=== PATIENT | female | born 1975 | race Caucasian/White ===

== ENCOUNTER 2021-10-22 07:18 | Outpatient (REF) | payer OTHER, SELFPAY ==
--- NOTE | ~2021-10-22 | XR_ITS ---
EXAMINATION: XR BILATERAL AP XR RIGHT KNEE-LATERAL AND PATELLOFEMORAL VIEWS CLINICAL INFORMATION: Right knee pain. COMPARISON: None TECHNIQUE: Upright frontal views of both knees and lateral and patellofemoral views of the right knee were obtained. FINDINGS: Frontal view of both knees: The bony alignments are intact. The cortices are intact. The articular margins, joint space appear bilaterally symmetric. No evidence of any subchondral sclerosis and osteophyte formations. Lateral and patellofemoral view of the right knee: The bony alignments are intact. The cortices are intact. Articular margins, joint space appear unremarkable. No evidence of any suprapatellar effusion. XR/XR knee standing BI IMPRESSION: 1. Unremarkable frontal view only of both knees. 2. Unremarkable lateral and patellofemoral views of the right knee.
--- NOTE | ~2021-10-22 | XR_ITS ---
EXAMINATION: XR BILATERAL AP XR RIGHT KNEE-LATERAL AND PATELLOFEMORAL VIEWS CLINICAL INFORMATION: Right knee pain. COMPARISON: None TECHNIQUE: Upright frontal views of both knees and lateral and patellofemoral views of the right knee were obtained. FINDINGS: Frontal view of both knees: The bony alignments are intact. The cortices are intact. The articular margins, joint space appear bilaterally symmetric. No evidence of any subchondral sclerosis and osteophyte formations. Lateral and patellofemoral view of the right knee: The bony alignments are intact. The cortices are intact. Articular margins, joint space appear unremarkable. No evidence of any suprapatellar effusion. XR/XR knee RT 2V IMPRESSION: 1. Unremarkable frontal view only of both knees. 2. Unremarkable lateral and patellofemoral views of the right knee.
== END 2021-10-22 07:19 | disposition home or self-care (01) ==
LOC: HO.HOSX 07:18
PROVIDERS: Visit Provider Physician Assistant
DX: M23.91 Unspecified internal derangement of right knee (principal)
CPT/HCPCS: 20610; 73560; 73565; 99202; J1040

== ENCOUNTER 2021-11-12 19:25 | Outpatient (REF) | payer OTHER, MEDICAID, SELFPAY ==
--- NOTE | ~2021-11-12 | MR_ITS ---
EXAMINATION: MR KNEE WITHOUT CONTRAST, RIGHT CLINICAL INFORMATION: Internal derangement of the right knee. COMPARISON: X-ray of the right knee 10/22/2021. TECHNIQUE: MRI of the knee without contrast was performed using routine sequences on a high-field scanner. FINDINGS: MENISCI: Medial Meniscus: Intact. Lateral Meniscus: There is a subtle focal area of increased signal along the tibial articular surface at the junction of the posterior horn and body consistent with meniscal tear. Question additional tearing at the junction of the transverse meniscal ligament with the anterior horn versus normal variation at the attachment. LIGAMENTS: Cruciate: Intact. Collateral: Intact. EXTENSOR MECHANISM: Intact. ARTICULAR CARTILAGE/BONE: Patellofemoral Compartment: Normal. Medial Compartment: Normal. Lateral Compartment: Normal. JOINT FLUID AND BURSAE: Trace joint effusion and Lorenz's cyst. ADDITIONAL FINDINGS: Mild scattered edema in the subcutaneous soft tissues. MR/MR knee RT wo con IMPRESSION: Tear of the lateral meniscus .
== END 2021-11-12 19:26 | disposition home or self-care (01) ==
LOC: HO.MRI 19:25
PROVIDERS: Visit Provider Physician Assistant
DX: M23.91 Unspecified internal derangement of right knee (principal)
CPT/HCPCS: 73721

== ENCOUNTER → 2021-11-24 08:38 | Outpatient (BNVA) | payer OTHER, MEDICAID, SELFPAY | PROVIDERS: PCP Internal Medicine; Visit Provider Orthopaedic Surgery | DX: S83.206D Unspecified tear of unspecified meniscus, current injury, right knee, subsequent encounter (principal) | CPT/HCPCS: 99212 ==

== ENCOUNTER 2021-12-17 06:42 | Day surgery (SDC) | payer OTHER, SELFPAY ==
[2021-12-11 10:32] VITALS: BMI 39.6
--- NOTE | 2021-12-16 09:58 | P.CONAN_ITS ---
Documented by User: Bernadette Estrada NP 12/16/21 09:59 HPI - Anesthesia Eval Consult details Narrative: 46yo F for Right Knee Arthroscopy PMFSH Active Problems Active Problems: All Active Problems (Updated 12/11/21 @ 10:29 by Crystal Henry RN) Internal derangement of right knee (Acute) Right knee meniscal tear (Acute) Past Medical History Medical History (Updated 12/11/21 @ 10:29 by Crystal Henry RN) Anxiety Asthma Surgical History Surgical History (Updated 12/11/21 @ 10:29 by Crystal Henry RN) Hx of section Hx of hysterectomy Social History Social History (Updated 10/22/21 @ 10:13 by JONATHON Roldan) Are you a primary out of school hours care worker to a significant other at home: No Do you presently have visiting nurse or other home services: No Patient Tobacco Use Status: Former Tobacco user Current occupational status: unemployed Meds Allergies Allergy/AdvReac Type Severity Reaction Status Date / Time No Known Allergies Allergy Verified 12/11/21 09:08 Home Medications Medication Instructions Recorded Confirmed Last Taken Type cholecalciferol (vitamin D3) 1,250 1,250 mcg PO QWEEK 10/22/21 12/11/21 Unknown History mcg (50,000 unit) capsule hydroxyzine HCl 10 mg tablet 10 mg PO BID 10/22/21 12/11/21 Unknown History paroxetine HCl 20 mg tablet 20 mg PO DAILY 10/22/21 12/11/21 12/17/21 History albuterol sulfate 90 mcg/actuation 2 puff inhalation [id number] PRN Wheezing 12/11/21 12/11/21 Unknown History aerosol inhaler (ProAir HFA) cholecalciferol (vitamin D3) 1,250 1 cap PO QWEEK 12/11/21 12/11/21 Unknown History mcg (50,000 unit) capsule diclofenac sodium 75 mg 1 tab PO BID 12/11/21 12/11/21 Unknown History tablet,delayed release Exam Exam Date and Time: December 16, 2021 0958 Height,Weight and Vital Signs: Height 5 ft 2 in Weight 98.43 kg Assessment and Plan Assessment Anesthesia Assessment: Chart Reviewed Documented by User: Boris Mir MD 12/17/21 18:52 [facility] Past Medical History Medical History (Updated 12/11/21 @ 10:29 by Crystal Henry RN) Anxiety Asthma Family History Family history of problems with anesthesia: No Surgical History Surgical History (Updated 12/11/21 @ 10:29 by Crystal Henry RN) Hx of section Hx of hysterectomy History of Problems with Anesthesia: No Social History Social History (Updated 10/22/21 @ 10:13 by JONATHON Roldan) Are you a primary out of school hours care worker to a significant other at home: No Do you presently have visiting nurse or other home services: No Patient Tobacco Use Status: Former Tobacco user Current occupational status: unemployed Meds Allergies Allergy/AdvReac Type Severity Reaction Status Date / Time No Known Allergies Allergy Verified 12/11/21 09:08 Home Medications Medication Instructions Recorded Confirmed Last Taken Type cholecalciferol (vitamin D3) 1,250 1,250 mcg PO QWEEK 10/22/21 12/11/21 Unknown History mcg (50,000 unit) capsule hydroxyzine HCl 10 mg tablet 10 mg PO BID 10/22/21 12/11/21 Unknown History paroxetine HCl 20 mg tablet 20 mg PO DAILY 10/22/21 12/11/21 12/17/21 History albuterol sulfate 90 mcg/actuation 2 puff inhalation [id number] PRN Wheezing 12/11/21 12/11/21 Unknown History aerosol inhaler (ProAir HFA) cholecalciferol (vitamin D3) 1,250 1 cap PO QWEEK 12/11/21 12/11/21 Unknown History mcg (50,000 unit) capsule diclofenac sodium 75 mg 1 tab PO BID 12/11/21 12/11/21 Unknown History tablet,delayed release Exam Airway Mallampati Class: III TM Dist: >3cm Neck ROM: Full Loose/Missing/Broken Teeth: Yes (Missing lower , upper implants ) Heart: S1, S2 Lungs: b/l breath sounds Assessment and Plan Assessment Anesthesia Assessment: Anesthesia Plan Discussed Final Anesthetic Review Family History of Problems with Anesthesia: No History of Problems with Anesthesia: No NPO: Yes ASA Class: II Final Preanesthetic Review: Meds/Allgs Chart Reviewed and Anes Risks/Benef Reviewed Patient Risk: Intermediate Procedure Risk: Intermediate Anesthetic Plan Anesthetic Plan: GA Disposition: Standard PACU
[2021-12-17] VITALS (9 sets, daily range): BP systolic 111–155; BP diastolic 66–96; PULSE 67–91; RESP 14–17; TEMP 36.1–36.6; O2SAT 97
[2021-12-17] MEDS: Lactated Ringers 1,000 ML 100 ML IVCONT (07:54)
--- NOTE | 2021-12-17 10:53 | PM.OP ---
Brief Operative Note Date of Service: 12/17/21 Pre-op diagnosis: right lateral meniscus tear Post-op diagnosis: other (1) same 2) medial plica) Procedure: Lateral partial meniscectomy and plica resection right knee Surgeon: Luis Ruiz MD Anesthesia: GETA Was an Inspection Supervisor used for this Procedure?: No Estimated blood loss (mL): 5 IV fluids (mL): 500 Pathology: none sent Condition: stable Disposition: PACU
[2021-12-17] MEDS: oxyCODONE HCl Immed Release 5 MG TABLET PO (11:47)
--- NOTE | 2021-12-23 12:20 | W.PM.OPN ---
Operative Note Operative Note Date of Service: 12/17/21 Narrative: Date of Service: 12/17/21 Pre-op diagnosis: right lateral meniscus tear Post-op diagnosis: other (1) same 2) medial plica) Procedure: Lateral partial meniscectomy and plica resection right knee Surgeon: Luis Ruiz MD Anesthesia: GETA Was an Snack Stewardess used for this Procedure?: No Estimated blood loss (mL): 5 IV fluids (mL): 500 Pathology: none sent Condition: stable Disposition: PACU Procedure in detail: Patient was brought to the operating room placed supine on the arthroscopic table and prepped and draped in standard sterile fashion. A time-out was called to identify proper site proper procedure proper surgeon and IV antibiotics per weight were administered. I began by exsanguinating the limb and insufflating tourniquet to 300 mm Hg. Then made a standard anterolateral stab incision. knee was insufflated with water and 30 degree arthroscope was placed. There was grade 1 fibrillations of the patella but overall suprapatellar pouch and the gutters were clean. I descended into the medial compartment where I made my medial portal under direct visualization. There was a normal medial compartment. The root was intact. The ACL was intact and I entered the lateral compartment where there was a degenerative radial tear. There was G1/G2 changes of the lateral compartment. I used a combination of biter shaver and cautery to remove unstable portions of the meniscus. Approximately 20% of the meniscal volume was removed. Once I was satisfied with this there was a medial plica which was removed as well. I then removed all instrumentation and closed the portals with skin glue. 25 mL of 2% Marcaine with epinephrine was injected into the joint and the surrounding soft tissues. Patient was then placed in sterile dressing extubated brought recovery room stable condition. There were no known complications.
== END 2021-12-17 13:19 | disposition home or self-care (01) ==
PROVIDERS: Visit Provider Orthopaedic Surgery
PROC: (CPT 29870; principal; 2021-12-17 09:10)
DX: S83.281A Other tear of lateral meniscus, current injury, right knee, initial encounter (principal); M67.51 Plica syndrome, right knee; W19.XXXA Unspecified fall, initial encounter; Y93.9 Activity, unspecified; Y92.9 Unspecified place or not applicable; Y99.8 Other external cause status
CPT/HCPCS: 29881; J0171; J0690; J1100; J1170; J1885; J2250; J2405; J3010

== ENCOUNTER 2022-01-08 10:00 | Outpatient (RCR) | payer OTHER, SELFPAY ==
--- NOTE | 2021-12-23 12:08 | MHC.PT.EP ---
[facility] [place] Office [place] Office [place] Office [address] Monica Carroll [address] [phone] F: [phone] F: [phone] F: [phone] F: [phone] Physical Therapy Plan of Care Date of Evaluation: Date of Surgery: 12/17/21 Diagnosis: Unspecified internal derangement of right knee unspecified tear of unspecified meniscus, current injury, right knee R knee 12/17/21 Assessment: Pt is a pleasant 46yo F who presents to PT s/p lateral partial meniscectomy and plica resection right knee with Dr. Ruiz on 12/17/21. Pt presents with expected impairments of pain, decreased R knee ROM, decreased R LE strength, decreased balance, and impaired gait. She is limited functionally by prolonged standing, walking, stair navigation, and sleeping. She is an excellent candidate for skilled PT in order to address current impairments to facilitate return to PLOF. She will be seen 2x/week for 4 weeks and will be reassessed at that time. Frequency and Duration: The patient will be seen 2x/week for 4 weeks Short Term Goals: Pt will be I with HEP to promote self management of symptoms Pt will improve R knee extension by at least 5 degrees Manager Fire Goals: Pt will demonstrate full, ROM and strength throughout R knee per protocol Pt will demonstrate ability to ascend/descend 1 flight of stairs with reciprocal pattern Pt will demonstrate improvements in function as evidenced by statistically significant improvement in LEFI outcome measure Treatment Plan: Modalities to reduce pain, spasms and effusion. Manual therapy to restore motion and function. Therapeutic exercise to improve strength and flexibility. Neuromuscular re-education for posture and balance. Therapeutic activities to return to functional activities of daily living. Electronically signed by: Criss Kaplan, PT, DPT Please sign and return to therapist. Thank you for your referral.
--- NOTE | 2022-01-16 16:02 | MHC.PT.DC ---
[facility] [place] Office [place] Office [place] Office [address] Monica Carroll [address] [facility] [phone] F: [phone] F: [phone] F: [phone] F: [phone] Physical Therapy Discharge Report Diagnosis: Unspecified internal derangement of right knee unspecified tear of unspecified meniscus, current injury, right knee R knee 12/17/21 Date of Surgery: 12/17/21 Date of Evaluation: 12/23/21 Date of Discharge: 01/16/22 Treatments to Date: 4 Cancellations to Date: 1 No Shows to Date: 3 Discharge Status: Visit Non-compliance Discharge Summary: Pt was seen for PT from 12/23/21-01/08/22. Her last attended appointment was 01/08/22. She has had 3 no-show appointments since SOC. Pt is being D/C from skilled PT per [facility] attendance policy and visit non-compliance. Pt current level of function unknown at this time. Electronically signed by: Criss Kaplan, PT, DPT Please sign and return to therapist. Thank you for your referral.
== END 2022-01-16 16:03 | disposition home or self-care (01) ==
LOC: HO.PT 10:00
PROVIDERS: Visit Provider Physician Assistant
DX: M23.91 Unspecified internal derangement of right knee (principal); S83.206D Unspecified tear of unspecified meniscus, current injury, right knee, subsequent encounter
CPT/HCPCS: 97110; 97140; 97161; 97530

== ENCOUNTER 2023-01-12 09:38 | Emergency (ER) | payer MEDICAID, SELFPAY ==
--- NOTE | ~2023-01-12 | CT_ITS ---
EXAMINATION: CT ABDOMEN AND PELVIS WITH CONTRAST CLINICAL INFORMATION: Left ventral hernia, pain. COMPARISON: None available. TECHNIQUE: Multidetector volumetric images were obtained from the superior aspect of the liver through the pubic symphysis following administration 85 mL of Omnipaque 350 intravenous contrast. Sagittal and coronal reformatted images were obtained on the technologist's workstation. Oral contrast: No This CT examination was performed using dose optimization techniques as appropriate, variously including the following: *Automated exposure control *Adjustment of mA and/or kV according to patient size (this includes techniques or standardized protocols for targeted exams where dose is matched to indication/reason for exam; i.e. extremities or head) *Use of iterative reconstruction technique DLP: 795 mGy-cm FINDINGS: LUNG BASES: Normal. No pulmonary consolidation or pleural effusion. LIVER: The liver has normal size, shape, and attenuation. No evidence of liver mass. GALLBLADDER AND BILIARY TREE: Gallbladder is without radiopaque stones, wall thickening or pericholecystic fluid. No dilated bile ducts. PANCREAS: Normal. No edema, pancreatic ductal dilatation or mass. SPLEEN: Normal. ADRENAL GLANDS: Normal. KIDNEYS AND URETERS: The kidneys have normal size and cortical thickness. No perinephric edema or fluid collection. No urolithiasis or hydroureteronephrosis. BLADDER: Normal. No calculi or wall thickening. BOWEL AND PERITONEUM: Stomach is unremarkable. No dilated loops of bowel. The appendix is normal. No overt bowel wall thickening or mesenteric fat stranding. No free fluid or pneumoperitoneum. ABDOMINAL WALL: There is negligible protrusion of fat into the umbilicus. There appears to be chronic postoperative scarring of the lower abdominal wall. The contrast enhancing tissue thickening that measures 1.2 cm AP in the lower abdominal wall could represent nodular-appearing fibrosis. There are no comparison imaging exams that allow documentation of the stability of this focus. If there is any clinical history of endometriosis, then postoperative endometrial deposit in the abdominal wall may be included in the differential. A small 0.7 cm nodular focus is seen within the fat just deep to the midline abdominal wall (sagittal reformatted image 60, series 7). VASCULATURE: Mild atherosclerosis of the abdominal aorta and iliac arteries without aneurysm. Inferior vena cava is normal. LYMPH NODES: No pathologic sized lymph nodes in the abdomen or pelvis. No inguinal lymphadenopathy. PELVIC VISCERA: Status post hysterectomy. The largest follicle of the left ovary is 1.2 cm. There appears to be a 1.1 cm wide somewhat tubular shaped simple cystic-appearing focus within the right ovary (image 67, series 2). No pelvic free fluid. MUSCULOSKELETAL: Unremarkable. CT/CT abdomen pelvis w IV con IMPRESSION: * No acute imaging abnormalities within the abdominal wall. No ventral abdominal wall hernia. * Postoperative scarring in the lower abdominal wall. Also, findings include a 1.2 cm AP dimension nodular-appearing focus of contrast enhancement in the lower abdominal wall. Although this could represent chronic focal fibrosis, there are no comparison imaging exams. Correlation with site of patient's pain is needed. If this corresponds to region of patient's pain and if there is any history of endometriosis, then the possibility of an endometrial deposit in the abdominal wall would be considered. A small 0.7 cm nodular focus located just deep to the abdominal wall is of questionable significance in this patient who has previously undergone hysterectomy.
[2023-01-12 10:23] VITALS: BP 137/87; PULSE 69; RESP 18; TEMP 36.1; O2SAT 99; BMI 42.8
--- NOTE | 2023-01-12 11:03 | ED_ITS ---
HPI - General Adult General Chief complaint: General Medical Stated complaint: Hernia Pain Left Side Time Seen by Provider: 01/12/23 10:37 Source: patient and RN notes reviewed Mode of arrival: ambulatory Limitations: no limitations History of Present Illness HPI narrative: This is a 47-year-old female presenting to the emergency department with complaints of left groin pain x 4 days. Patient reports she has a hernia in her left lower abdomen which she has had since her Caesarean section that was performed 7 years ago. Patient reports that she has had no recent trauma or injury to her left lower abdomen. Reports that when she coughs or sneezes she feels as though area increases in size. Area is tender to palpation. Denies any fevers, chills, abdominal pain, nausea, vomiting, diarrhea, urinary symptom s. She denies history of endometriosis. She had a hysterectomy. No other complaints or concerns at this time. MD complaint: Left lower abdominal pain Onset (ago): day(s) Radiation: non-radiation Quality: aching Pain Consistency: constant Relieving factors: none Exacerbating factors: none Associated symptoms: denies other symptoms Treatments prior to arrival: none Related Data Home Medications Medication Instructions Recorded Confirmed cholecalciferol (vitamin D3) 1,250 1,250 mcg PO QWEEK 10/22/21 12/11/21 mcg (50,000 unit) capsule hydroxyzine HCl 10 mg tablet 10 mg PO BID 10/22/21 12/11/21 paroxetine HCl 20 mg tablet 20 mg PO DAILY 10/22/21 12/11/21 albuterol sulfate 90 mcg/actuation 2 puff inhalation 6XD PRN Wheezing 12/11/21 12/11/21 aerosol inhaler (ProAir HFA) cholecalciferol (vitamin D3) 1,250 1 cap PO QWEEK 12/11/21 12/11/21 mcg (50,000 unit) capsule diclofenac sodium 75 mg 1 tab PO BID 12/11/21 12/11/21 tablet,delayed release Previous Rx's Medication Instructions Recorded hydrocodone 5 mg-acetaminophen 325 1 tab PO Q8H PRN pain 7 days #21 12/17/21 mg tablet tabs acetaminophen 325 mg capsule 650 mg PO Q6H PRN pain #14 caps 01/12/23 (Tylenol) ibuprofen 600 mg tablet 600 mg PO Q6H PRN pain #30 tabs 01/12/23 Allergies Allergy/AdvReac Type Severity Reaction Status Date / Time No Known Allergies Allergy Verified 12/29/21 10:42 Review of Systems Review of Systems: Yes all other systems are reviewed and are negative Constitutional: Constitutional: Reports as per [facility] Past Medical History Medical History Anxiety Asthma Surgical History Hx of section Hx of hysterectomy Social History Social History Are you a primary career placement services counselor to a significant other at home: No Do you presently have visiting nurse or other home services: No Patient Tobacco Use Status: Former Tobacco user Advance Directives: No Current occupational status: unemployed Physical Exam ED Vital Signs: Vital Signs - 24 hr 01/12/23 10:23 Temperature 97 F Pulse Rate 69 Respiratory Rate 18 Blood Pressure 137/87 Pulse Oximetry 99 Oxygen Delivery Method Room Air BMI result Body Mass Index 42.8 Const General: cooperative, comfortable and no acute distress Orientation/consciousness: patient oriented x3 Limitations: no limitations HENMT Head: Yes normal to inspection, Yes normocephalic and Yes atraumatic Ears: hearing grossly normal bilaterally General nose exam: Normal external nose present Face and sinus: Yes normal facial exam Mouth: Normal oral and palatal mucosa present, oropharynx normal and moist mucous membranes Throat: Yes posterior oropharynx normal Eyes General: appearance normal, both eyes and all related structures Eyelids: Yes eyelids normal Conjunctivae: conjunctivae normal Sclerae: sclerae normal Pupils: Equal, round and reactive pupils present EOM: EOMs intact bilaterally Neck Neck: Yes normal visual inspection, Yes full ROM and Yes no lymphadenopathy Lymphatic: no lymphadenopathy noted Chest Chest palpation & inspection: normal inspection of the chest Resp Effort & Inspection: normal respiratory effort and able to speak in complete sentences Auscultation: clear to auscultation bilaterally, no crackles, no rales, no rhonchi and no wheezes Cardio Rate: regular rate Rhythm: regular rhythm Heart sounds: S1 normal heart sound present and S2 normal heart sound present GI Other: Abdomen is soft nontender, nondistended. Patient has obvious Caesarean section scar, with tenderness to palpation in the left lower quadrant, with palpable scar tissue noted. No obvious ventral hernia or inguinal hernia noted. No overlying skin changes, erythema, or warmth. Inspection: Yes normal to inspection Skin General skin exam: no rashes or lesions noted Trauma: no lacerations or abrasions Wounds: no wounds Neuro General: patient oriented x3 and moves all extremities Cranial nerves: Yes Equal, round and reactive pupils present Extrem General: Yes normal to inspection Right upper extremity: normal to inspection Left upper extremity: normal to inspection Right lower extremity: normal to inspection Left lower extremity: normal to inspection Course Reevaluation(s) Reevaluation #1: Patient has no leukocytosis, H and H stable, chemistry within normal limits, urine revealing high specific gravity otherwise unremarkable. CT abdomen and pelvis revealing no abnormalities within the abdominal wall, no ventral abdomin al wall hernia palpated. There is postoperative scarring in the lower abdominal wall as well as a 0.2 cm AP dimension nodular appearing focus of contrast enhancement in the lower abdominal wall which could represent fibrosis. Patient has no history of endometriosis to her knowledge. She does not have an OBGYN she can follow-up with. Given patient is able to tolerate p.o. and has normal labs normal UA, and symptoms have improved after receiving IV fluids, Tylenol and Toradol, will treat conservatively. Given return precautions if any new or worsening symptoms occur. Patient understands agrees with plan. Given referral to OBGYN. Medications Administered Discontinued Medications Generic Name Dose Route Start Last Admin Trade Name Troyq PRN Reason Stop Dose Admin Acetaminophen 975 mg 01/12/23 11:27 01/12/23 11:31 Acetaminophen 325 Mg Tablet PO 01/12/23 11:28 975 mg ONCE ONE Administration Sodium Chloride 1,000 mls @ 999 mls/hr 01/12/23 12:38 01/12/23 13:54 Ns IV 01/12/23 13:38 Infused .Q1H1M ONE Infusion Iohexol 85 ml 01/12/23 12:14 01/12/23 12:15 Iohexol 350 Mg/Ml 100 Ml Infus..Btl IV 01/12/23 12:15 85 ml ONCE ONE Administration Ketorolac Tromethamine 30 mg 01/12/23 12:38 01/12/23 12:43 Ketorolac Tromethamine 30 Mg/Ml Vial IVPUSH 01/12/23 12:39 30 mg ONCE ONE Administration Medical Decision Making Medical Decision Making MDM Narrative: 47-year-old female presenting to the emergency department for evaluation of left lower quadrant pain x4 days. Patient reports that she believes that she has a hernia in her left lower quadrant which has been increasing in size and pain. On arrival, vital signs within normal limits, patient is afebrile. Patient has tenderness to palpation in the left lower quadrant with palpable scar tissue noted to her abdominal quadrant. No obvious hernia palpated. No overlying skin changes. Given symptoms, will obtain basic labs, UA, and CT abdomen with contrast to rule out strangulated hernia versus intra-abdominal process. Patient has no nausea or vomiting. Has been urinating and having bowel movements without difficulty. Obstruction is less likely. Differential Diagnosis Differential Diagnoses: The differential diagnosis associated with the presentation includes Hernia, strangulated hernia, diverticulitis, diverticulosis, endometriosis, fibroids Admission/Observation Consideration of admission/observation: Escalation of care including admission/observation considered Patient would have been admitted to the hospital had her work up had any finding s where hospital admission was appropriate and her clinical presentation warranted hospital admission. Lab Data [facility] Lab Attestation statement: I reviewed the patient's lab results. See above 01/12/23 11:26 01/12/23 11:26 Labs: Lab Results 01/12/23 01/12/23 01/12/23 Range/Units 11:26 11:26 11:26 WBC 8.3 (4.8-10.8) X10*3/uL RBC 5.56 H (4.20-5.50) X10*6/uL Hgb 13.7 (12.0-16.0) g/dl Hct 44.0 (37.0-47.0) % MCV 79.1 L (80.0-98.0) fL MCH 24.6 L (27.0-33.0) pg MCHC 31.1 (31.0-35.0) g/dl RDW 14.1 (11.0-16.0) % Plt Count 422 H (160-400) X10*3/uL MPV 9.3 L (9.4-12.3) fL Immature Gran % (Auto) 0.5 H (0.0-0.4) % Neut % (Auto) 68.5 (45-73) % Lymph % (Auto) 22.1 (20-40) % Mason % (Auto) 6.6 (2-11) % Eos % (Auto) 1.8 (0-4) % Baso % (Auto) 0.5 (0-2) % Lymph # (Auto) 1.8 (1.2-4.9) X10*3/uL Mason # (Auto) 0.6 (0.1-1.2) X10*3/uL Eos # (Auto) 0.2 (0.0-0.4) X10*3/uL Baso # (Auto) 0.0 (0.0-0.2) X10*3/uL Abs Immat Gran (auto) 0.04 H (0.00-0.03) X10*3/uL Absolute Neuts (auto) 5.7 (2.0-8.3) x10*3/uL Absolute Nucleated RBC 0.000 (0.0-0.012) X10*3/uL Nucleated RBC % (auto) 0.0 (0.0-0.2) /100WBC Sodium 138 (135-145) mmol/L Potassium 3.7 (3.3-5.1) mmol/L Chloride 106 (96-108) mmol/L Carbon Dioxide 28 (22-29) mmol/L Anion Gap 8 L (12-20) BUN 10 (9-16) mg/dL Creatinine 0.92 (0.5-1.4) mg/dL Estim Creat Clear Calc 85.1 Estimated GFR > 60 Random Glucose 111 (60-115) mg/dL Lactic Acid 1.0 (0.5-2.0) mmol/L Calcium 8.9 (8.4-10.2) mg/dL Total Bilirubin 0.3 (0.0-1.0) mg/dL Direct Bilirubin 0.1 (0.0-0.5) mg/dL AST 13 (5-31) U/L ALT 18 (0-31) U/L Alkaline Phosphatase 87 (39-117) U/L Total Protein 7.3 (6.5-8.0) g/dL Albumin 3.8 (3.5-5.0) g/dL Urine Color Urine Appearance Urine pH (5.0-9.0) Ur Specific Bowie (1.005-1.025) Urine Protein (Neg-Trace) mg/dL Urine Glucose (UA) (Negative) mg/dL Urine Ketones (Negative) mg/dL Urine Blood (Negative) Urine Nitrite (Negative) Ur Leukocyte Esterase (Negative) 01/12/23 Range/Units 11:55 WBC (4.8-10.8) X10*3/uL RBC (4.20-5.50) X10*6/uL Hgb (12.0-16.0) g/dl Hct (37.0-47.0) % MCV (80.0-98.0) fL MCH (27.0-33.0) pg MCHC (31.0-35.0) g/dl RDW (11.0-16.0) % Plt Count (160-400) X10*3/uL MPV (9.4-12.3) fL Immature Gran % (Auto) (0.0-0.4) % Neut % (Auto) (45-73) % Lymph % (Auto) (20-40) % Mason % (Auto) (2-11) % Eos % (Auto) (0-4) % Baso % (Auto) (0-2) % Lymph # (Auto) (1.2-4.9) X10*3/uL Mason # (Auto) (0.1-1.2) X10*3/uL Eos # (Auto) (0.0-0.4) X10*3/uL Baso # (Auto) (0.0-0.2) X10*3/uL Abs Immat Gran (auto) (0.00-0.03) X10*3/uL Absolute Neuts (auto) (2.0-8.3) x10*3/uL Absolute Nucleated RBC (0.0-0.012) X10*3/uL Nucleated RBC % (auto) (0.0-0.2) /100WBC Sodium (135-145) mmol/L Potassium (3.3-5.1) mmol/L Chloride (96-108) mmol/L Carbon Dioxide (22-29) mmol/L Anion Gap (12-20) BUN (9-16) mg/dL Creatinine (0.5-1.4) mg/dL Estim Creat Clear Calc Estimated GFR Random Glucose (60-115) mg/dL Lactic Acid (0.5-2.0) mmol/L Calcium (8.4-10.2) mg/dL Total Bilirubin (0.0-1.0) mg/dL Direct Bilirubin (0.0-0.5) mg/dL AST (5-31) U/L ALT (0-31) U/L Alkaline Phosphatase (39-117) U/L Total Protein (6.5-8.0) g/dL Albumin (3.5-5.0) g/dL Urine Color Yellow Urine Appearance Clear Urine pH 6.0 (5.0-9.0) Ur Specific Bowie >= 1.030 H (1.005-1.025) Urine Protein Negative (Neg-Trace) mg/dL Urine Glucose (UA) Negative (Negative) mg/dL Urine Ketones Negative (Negative) mg/dL Urine Blood Negative (Negative) Urine Nitrite Negative (Negative) Ur Leukocyte Esterase Negative (Negative) Radiology Impression Discussion of test interpretation with radiology: I have reviewed the radiologist's reading. Radiologist Impression: EXAMINATION: CT ABDOMEN AND PELVIS WITH CONTRAST? CLINICAL INFORMATION: Left ventral hernia, pain.? COMPARISON: None available. TECHNIQUE: Multidetector volumetric images were obtained from the superior aspect of the liver through the pubic symphysis following administration 85 mL of Omnipaque 350 intravenous contrast. Sagittal and coronal reformatted images were obtained on the technologist's workstation.? Oral contrast: No This CT examination was performed using dose optimization techniques as appropriate, variously including the following: *Automated exposure control *Adjustment of mA and/or kV according to patient size (this includes techniques or standardized protocols for targeted exams where dose is matched to indication/reason for exam; i.e. extremities or head) *Use of iterative reconstruction technique DLP: 795 mGy-cm FINDINGS: LUNG BASES: Normal. No pulmonary consolidation or pleural effusion.? LIVER: The liver has normal size, shape, and attenuation.? No evidence of liver mass. GALLBLADDER AND BILIARY TREE: Gallbladder is without radiopaque stones, wall thickening or pericholecystic fluid.? No dilated bile ducts. PANCREAS: Normal. No edema, pancreatic ductal dilatation or mass.? SPLEEN: Normal.? ADRENAL GLANDS: Normal.? KIDNEYS AND URETERS: The kidneys have normal size and cortical thickness. No perinephric edema or fluid collection. No urolithiasis or hydroureteronephrosis. BLADDER:? Normal. No calculi or wall thickening. BOWEL AND PERITONEUM: Stomach is unremarkable. No dilated loops of bowel. The appendix is normal. No overt bowel wall thickening or mesenteric fat stranding. No free fluid or pneumoperitoneum. ABDOMINAL WALL: There is negligible protrusion of fat into the umbilicus. There appears to be chronic postoperative scarring of the lower abdominal wall. The contrast enhancing tissue thickening that measures 1.2 cm AP in the lower abdominal wall could represent nodular-appearing fibrosis. There are no comparison imaging exams that allow documentation of the stability of this focus. If there is any clinical history of endometriosis, then postoperative endometrial deposit in the abdominal wall may be included in the differential. A small 0.7 cm nodular focus is seen within the fat just deep to the midline abdominal wall (sagittal reformatted image 60, series 7). VASCULATURE: Mild atherosclerosis of the abdominal aorta and iliac arteries without aneurysm. Inferior vena cava is normal. LYMPH NODES: No pathologic sized lymph nodes in the abdomen or pelvis. No inguinal lymphadenopathy. PELVIC VISCERA: Status post hysterectomy. The largest follicle of the left ovary is 1.2 cm. There appears to be a 1.1 cm wide somewhat tubular shaped simple cystic-appearing focus within the right ovary (image 67, series 2). No pelvic free fluid. MUSCULOSKELETAL: Unremarkable.? CT/CT abdomen pelvis w IV con IMPRESSION: *? No acute imaging abnormalities within the abdominal wall. No ventral abdominal wall hernia. ? *? Postoperative scarring in the lower abdominal wall. Also, findings include a 1.2 cm AP dimension nodular-appearing focus of contrast enhancement in the lower abdominal wall. Although this could represent chronic focal fibrosis, there are no comparison imaging exams. Correlation with site of patient's pain is needed. If this corresponds to region of patient's pain and if there is any history of endometriosis, then the possibility of an endometrial deposit in the abdominal wall would be considered. A small 0.7 cm nodular focus located just deep to the abdominal wall is of questionable significance in this patient who has previously undergone hysterectomy. ? Dictated By: Rafiq Skelton MD Signed By: <Electronically signed by Rafiq Skelton MD in OV> 01/12/23 1305 DD/ 1215 External Record Review External record reviewed: Inpatient record, Office record, Outpatient record, Prior outpatient labs, Prior outpatient radiology, Primary care record and Outside ED record Discharge Plan Discharge Clinical Impression: Abdominal pain Patient Disposition: Home, Self-Care Instructions: Abdominal Pain (ED) Additional Instructions: Your blood work and urine were reassuring today. Please continue to drink plenty of fluids and get plenty of rest. Your CT scan does not show any abdominal wall hernias. You do have postoperative scarring in the lower abdominal as well as a nodular appearing focus that could represent a old area of fibrosis. Please follow-up with OBGYN regarding this. Please call today to make an appointment. Take ibuprofen and Tylenol as needed for pain. If any new or worsening symptoms occur, including but not limited to fevers, chills, worsening abdominal pain, vomiting, please return for re-evaluation. Prescriptions: New acetaminophen [Tylenol] 325 mg capsule 650 mg PO Q6H PRN (Reason: pain) Qty: 14 0RF ibuprofen 600 mg tablet 600 mg PO Q6H PRN (Reason: pain) Qty: 30 0RF No Action diclofenac sodium 75 mg tablet,delayed release (DR/EC) 1 tab PO BID cholecalciferol (vitamin D3) 1,250 mcg (50,000 unit) capsule 1 cap PO QWEEK albuterol sulfate [ProAir HFA] 90 mcg/actuation Hfa Aerosol Inhaler 2 puff INHALATION 6XD PRN (Reason: Wheezing) hydrocodone-acetaminophen 5-325 mg tablet 1 tab PO Q8H PRN (Reason: pain) 7 Days Qty: 21 0RF Rx Instructions: Partial Fill upon patient request. cholecalciferol (vitamin D3) 1,250 mcg (50,000 unit) capsule 1,250 mcg PO QWEEK paroxetine HCl 20 mg tablet 20 mg PO DAILY hydroxyzine HCl 10 mg tablet 10 mg PO BID Referrals: [facility] [Provider Group] Stand Alone Forms: Work/School Release Interventions: ED Discharge Assessment Last Done: 01/12/23 13:54 Discharge Date/Time: 01/12/23 13:54
--- NOTE | 2023-01-12 11:28 | PC.NURSE ---
pt reporting pain on the lower left side of her abdomen, provider aware.
[2023-01-12 11:31] LABS: MANUAL DIFF FLAG NO
[2023-01-12] MEDS: Acetaminophen 325 MG TABLET 975 MG PO (11:31)
[2023-01-12 11:37] LABS: Basophils Percent Auto 0.5 % (0-2); Eosinophils Absolute Auto 0.2 X10*3/uL (0.0-0.4); Eosinophils Percent Auto 1.8 % (0-4); Hemoglobin 13.7 g/dl (12.0-16.0); Imm Gran Abs Auto 0.04 X10*3/uL (0.00-0.03); Imm Gran Pct Auto 0.5 % (0.0-0.4); Lymphocytes Absolute Auto 1.8 X10*3/uL (1.2-4.9); Lymphocytes Percent Auto 22.1 % (20-40); Mean Corpuscular HGB Conc 31.1 g/dl (31.0-35.0); Mean Corpuscular Hemoglobin 24.6 pg (27.0-33.0); Mean Corpuscular Volume 79.1 fL (80.0-98.0); Mean Platelet Volume 9.3 fL (9.4-12.3); Monocytes Absolute Auto 0.6 X10*3/uL (0.1-1.2); Monocytes Percent Auto 6.6 % (2-11); Neutrophils Absolute Auto 5.7 x10*3/uL (2.0-8.3); Neutrophils Percent Auto 68.5 % (45-73); Platelet Count 422 X10*3/uL (160-400); Red Blood Count 5.56 X10*6/uL (4.20-5.50); Red Cell Distribution Width 14.1 % (11.0-16.0); White Blood Count 8.3 X10*3/uL (4.8-10.8)
[2023-01-12 11:50] LABS: Alanine Aminotransferase 18 U/L (0-31); Albumin Level 3.8 g/dL (3.5-5.0); Alkaline Phosphatase 87 U/L (39-117); Anion Gap 8 (12-20); Aspartate Amino Transferase 13 U/L (5-31); Bilirubin Direct 0.1 mg/dL (0.0-0.5); Bilirubin Total 0.3 mg/dL (0.0-1.0); Blood Urea Nitrogen 10 mg/dL (9-16); Calcium 8.9 mg/dL (8.4-10.2); Carbon Dioxide 28 mmol/L (22-29); Chloride 106 mmol/L (96-108); Creatinine Clr Calc Pharmacy 85.1; Estimated Glomerular Filt Rate > 60; Glucose Random 111 mg/dL (60-115); Potassium 3.7 mmol/L (3.3-5.1); Sodium 138 mmol/L (135-145); Total Protein 7.3 g/dL (6.5-8.0)
[2023-01-12 12:02] LABS: Appearance Urine Clear; Color Urine Yellow; Glucose Urine UA Negative (Negative); Leukocyte Esterase Urine Negative (Negative); Nitrite Urine Negative (Negative); Specific Gravity - Urine >= 1.030 (1.005-1.025); Urine Blood Negative (Negative); Urine Ketones Negative (Negative); Urine Protein Negative (Neg-Trace)
[2023-01-12] MEDS: iohexoL 350 MG/ML 100 ML INFUS..BTL 85 ML IV (12:15)
[2023-01-12] MEDS: Ketorolac Tromethamine 30 MG/ML VIAL IVPUSH (12:43)
[2023-01-12] MEDS: 0.9 % Sodium Chloride 1,000 ML 999 ML IV (12:43)
== END 2023-01-12 13:54 | disposition home or self-care (01) ==
PROVIDERS: Physician Assistant Medical; Emergency Provider Emergency Medicine; PCP Nurse Practitioner Adult Health
DX: R10.32 Left lower quadrant pain (principal); Z79.899 Other long term (current) drug therapy
CPT/HCPCS: 36415; 74177; 80048; 80076; 81003; 83605; 85025; 96361; 96374; 99284; J1885; Q9967

== ENCOUNTER 2023-01-25 10:03 | Outpatient (AMB) | payer OTHER, SELFPAY ==
--- NOTE | 2023-01-25 10:14 | MHC.OFFVIS ---
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 She called for the appointment a of a couple of days after her visit and and was given this appointment . She tells me she had a x3 in [place] and then she was having heavy bleeding and her hemoglobin was down so they took got her uterus about 7 years ago in [place] but she does not remember all the details of what they told her and feels she was not told very much. She thinks she has the records of the hysterectomy and her C-sections in her house somewhere. She sees a primary care provider in [facility] and she just takes vitamin-D and medicine for anxiety. She does suffer from constipation but does not notice a relationship necessarily. She says she was told that might have something to do with scar tissue but she is not sure.. She has not had a Pap smear in at least 5 years since she has been here. [facility] Medical History (Updated 01/25/23 @ 11:23 by Brionna Lamas CNM) Anxiety Asthma Surgical History (Updated 01/25/23 @ 11:23 by Brionna Lamas CNM) History of carpal tunnel surgery of right wrist Hx of section Hx of hysterectomy Family History (Updated 01/25/23 @ 10:22 by SMA Citlali) Mother Breast cancer Social History Are you a primary care nurse rn to a significant other at home: No Do you presently have visiting nurse or other home services: No Patient Tobacco Use Status: Former Tobacco user Current occupational status: unemployed Female Reproductive History Menstrual Age of Menarche: 13 control method: permanent sterilization Total pregnancies: 4 Number of Living Children: 3 Ab spontaneous: 1 History of abnormal pap smear: No Physical Exam Vital Signs: Last Vital Signs BP 120/76 01/25/23 10:15 BMI result Body Mass Index 43.3 Other: abdomen was palpated and patient could identified for me the left side of her and hysterectomy scars where she had felt the pain and where it sometimes recurs but is more of an eb and flow kind of situation with the pain it is not a there acutely today. no pathology evident on external exam. Results Reviewed Results Reviewed: Signed Patient: Lucia Degroot MR#: [id number] : 1975 Acct:[id number] Age/Sex: 47 / F ADM Date: 01/12/23 Loc: HO.ED Attending Dr: Ordering Physician: Iva Reagan Date of Service: 01/12/23 Procedure(s): CT abdomen pelvis w IV con Accession Number(s): [id number] cc: Iva Reagan~ EXAMINATION: CT ABDOMEN AND PELVIS WITH CONTRAST? CLINICAL INFORMATION: Left ventral hernia, pain.? COMPARISON: None available. TECHNIQUE: Multidetector volumetric images were obtained from the superior aspect of the liver through the pubic symphysis following administration 85 mL of Omnipaque 350 intravenous contrast. Sagittal and coronal reformatted images were obtained on the technologist's workstation.? Oral contrast: No This CT examination was performed using dose optimization techniques as appropriate, variously including the following: *Automated exposure control *Adjustment of mA and/or kV according to patient size (this includes techniques or standardized protocols for targeted exams where dose is matched to indication/reason for exam; i.e. extremities or head) *Use of iterative reconstruction technique DLP: 795 mGy-cm FINDINGS: LUNG BASES: Normal. No pulmonary consolidation or pleural effusion.? LIVER: The liver has normal size, shape, and attenuation.? No evidence of liver mass. GALLBLADDER AND BILIARY TREE: Gallbladder is without radiopaque stones, wall thickening or pericholecystic fluid.? No dilated bile ducts. PANCREAS: Normal. No edema, pancreatic ductal dilatation or mass.? SPLEEN: Normal.? ADRENAL GLANDS: Normal.? KIDNEYS AND URETERS: The kidneys have normal size and cortical thickness. No perinephric edema or fluid collection. No urolithiasis or hydroureteronephrosis. BLADDER:? Normal. No calculi or wall thickening. BOWEL AND PERITONEUM: Stomach is unremarkable. No dilated loops of bowel. The appendix is normal. No overt bowel wall thickening or mesenteric fat stranding. No free fluid or pneumoperitoneum. ABDOMINAL WALL: There is negligible protrusion of fat into the umbilicus. There appears to be chronic postoperative scarring of the lower abdominal wall. The contrast enhancing tissue thickening that measures 1.2 cm AP in the lower abdominal wall could represent nodular-appearing fibrosis. There are no comparison imaging exams that allow documentation of the stability of this focus. If there is any clinical history of endometriosis, then postoperative endometrial deposit in the abdominal wall may be included in the differential. A small 0.7 cm nodular focus is seen within the fat just deep to the midline abdominal wall (sagittal reformatted image 60, series 7). VASCULATURE: Mild atherosclerosis of the abdominal aorta and iliac arteries without aneurysm. Inferior vena cava is normal. LYMPH NODES: No pathologic sized lymph nodes in the abdomen or pelvis. No inguinal lymphadenopathy. PELVIC VISCERA: Status post hysterectomy. The largest follicle of the left ovary is 1.2 cm. There appears to be a 1.1 cm wide somewhat tubular shaped simple cystic-appearing focus within the right ovary (image 67, series 2). No pelvic free fluid. MUSCULOSKELETAL: Unremarkable.? CT/CT abdomen pelvis w IV con IMPRESSION: *? No acute imaging abnormalities within the abdominal wall. No ventral abdominal wall hernia. ? *? Postoperative scarring in the lower abdominal wall. Also, findings include a 1.2 cm AP dimension nodular-appearing focus of contrast enhancement in the lower abdominal wall. Although this could represent chronic focal fibrosis, there are no comparison imaging exams. Correlation with site of patient's pain is needed. If this corresponds to region of patient's pain and if there is any history of endometriosis, then the possibility of an endometrial deposit in the abdominal wall would be considered. A small 0.7 cm nodular focus located just deep to the abdominal wall is of questionable significance in this patient who has previously undergone hysterectomy. ? Dictated By: Rafiq Skelton MD Signed By: <Electronically signed by Rafiq Skelton MD in OV> 01/12/23 1305 DD/ 1215 TD/TT:? Telecom Billing Analyst: PD Assessment & Plan Assessment & Plan (1) Left sided abdominal pain: Code(s): R10.9 - Unspecified abdominal pain (2) Hx of hysterectomy: Code(s): Z90.710 - Acquired absence of both cervix and uterus (3) Hx of section: Comment: 3 Code(s): Z98.891 - History of uterine scar from previous surgery Plan I reviewed patient's history with her she had 3 C sections and a hysterectomy when she was 41 years old in [place] and she does not remember the exact reason other than 1 issue is that she had a lot of blood inside but she does not remember for was inside her uterus or inside her abdomen and her hemoglobin and hematocrit was low and she had a hysterectomy in enquiring as to whether not she had her cervix removed, she does not know but she said she was told to continue with yearly Pap smears after that. The pain was on the left-hand side and it kind of comes and goes and when it was really sharp the day she went to the emergency room it was like a really is deep serrated knife inside her. She does suffer from constipation. Her primary care provider is in [facility]. She just takes vitamin D every day and a medication for anxiety every day. I reviewed the CT scan with her and the possibilities that were raised by the radiologist including scar tissue and other findings. Patient is not having any acute pain now and palpation did not reproduce any pain for her she identifies the area of pain as clearly along the left side of her scars from her C-sections and hysterectomy. Discussed the process of scar tissue formation and why it can hurt so long after. discussed limited use of pain meds and she is careful not to take Tylenol or ibuprofen anymore than she really needs it and takes it rarely. Discussed that this does not appear to be anything acute. Discussed that possibly goal surgical follow-up would be better served for her by of surgeon. Her next visit should be with Dr. Caputo and I asked her to look for her hysterectomy records that she brought with her from [place]. after consultation with Dr. Caputo for further evaluation of this pain if it is necessary, she should have an annual exam and Pap smear with me as she has not had a Pap smear in 5 years. I did ask her to bring the records of her hysterectomy and we will be able to see more about the diagnoses pre and post op and whether not ending the endometriosis was noted at the time of the hysterectomy. Coding Level of Care Code New Pt Level 3 (32779) Diagnoses Left sided abdominal pain R10.9 Hx of hysterectomy Z90.710 Hx of section Z98.891
[2023-01-25 10:15] VITALS: BP 120/76; BMI 43.3
== END 2023-01-25 11:12 | disposition home or self-care (01) ==
LOC: HO.HWS 10:04
PROVIDERS: PCP Hospitalist; Visit Provider Advanced Practice Midwife
DX: R10.9 Unspecified abdominal pain (principal); Z90.710 Acquired absence of both cervix and uterus; Z98.891 History of uterine scar from previous surgery
CPT/HCPCS: 99203

== ENCOUNTER → 2023-01-25 10:03 | Outpatient (BNVA) | payer OTHER, SELFPAY | PROVIDERS: PCP Hospitalist; Visit Provider Advanced Practice Midwife ==

== ENCOUNTER 2023-02-22 06:20 | Emergency (ER) | payer MEDICAID, SELFPAY ==
--- NOTE | ~2023-02-22 | XR_ITS ---
EXAMINATION: XR HIP, LEFT CLINICAL INFORMATION: Pain COMPARISON: None available. TECHNIQUE: Two views of the left hip and one view of the pelvis. FINDINGS: No fracture. Alignment is anatomic. Hip joint space is maintained. Soft tissues are unremarkable. XR/XR hip LT w PEL1V IMPRESSION: Normal left hip.
[2023-02-22 06:22] VITALS: BP 128/79; PULSE 78; RESP 16; TEMP 35.9; O2SAT 100; BMI 41.6
--- NOTE | 2023-02-22 06:47 | ED_ITS ---
HPI - Extremity Problem General Chief complaint: Extremity Problem Stated complaint: hip pain Time Seen by Provider: 02/22/23 06:43 Source: patient Mode of arrival: ambulatory Limitations: no limitations History of Present Illness HPI Narrative: 47 year old female with PMHx significant for anxiety, asthma, and abdominal hernia presenting to the ED with left hip pain x3 days. Describes pain as sharp in nature. Radiates from the L hip to the left knee, does not go down to the left foot. Able to ambulate with limp. Is not using assistive devices. Last took Motrin 5 hours ago without relief. Denies injury, fall, or trauma. Denies fever, chills, chest pain, SOB, neck or back pain, abdominal pain, N/V, LE swelling/ tingling/ weakness/ numbness, or rash. Related Data Home Medications Medication Instructions Recorded Confirmed cholecalciferol (vitamin D3) 1,250 1,250 mcg PO QWEEK 10/22/21 12/11/21 mcg (50,000 unit) capsule hydroxyzine HCl 10 mg tablet 10 mg PO BID 10/22/21 12/11/21 paroxetine HCl 20 mg tablet 20 mg PO DAILY 10/22/21 12/11/21 albuterol sulfate 90 mcg/actuation 2 puff inhalation 6XD PRN Wheezing 12/11/21 12/11/21 aerosol inhaler (ProAir HFA) cholecalciferol (vitamin D3) 1,250 1 cap PO QWEEK 12/11/21 12/11/21 mcg (50,000 unit) capsule Previous Rx's Medication Instructions Recorded ibuprofen 600 mg tablet 600 mg PO Q6H PRN pain #30 tabs 01/12/23 cyclobenzaprine 10 mg tablet 10 mg PO BEDTIME PRN muscle spasm 02/22/23 #7 tabs ketorolac 10 mg tablet 10 mg PO TID PRN pain 5 days #15 02/22/23 tabs lidocaine 5 % topical patch 1 patch topical DAILY PRN pain #15 02/22/23 ea prednisone 50 mg tablet 50 mg PO DAILY 5 days #5 tabs 02/22/23 Allergies Allergy/AdvReac Type Severity Reaction Status Date / Time No Known Allergies Allergy Verified 01/25/23 10:17 Review of Systems Review of Systems: Constitutional : No Weight loss, No Fever, No Chills, No Fatigue, No Malaise ENT/Mouth : No sore throat, No Rhinorrhea Eyes: No Eye Pain, No Swelling, No Redness Cardiovascular : No Chest Pain, No SOB, No Dyspnea on Exertion Respiratory : No Cough, No Sputum, No Wheezing Gastrointestinal : No Nausea, No Vomiting, No Diarrhea, No Constipation, No abdominal Pain, No Hematochezia, No Melena Genitourinary : No Dysuria, No Urinary Frequency, No Hematuria, Musculoskeletal : No Myalgias, No Joint Swelling, + Hip pain Skin : No Skin Lesions, No rash Neuro : No Weakness, No Numbness, No Dizziness, No Headache All other systems reviewed and are negative Yes all other systems are reviewed and are negative [facility] Past Medical History Attestation statement: The following information was validated with the patient. Source: old records reviewed and nursing notes reviewed Medical History Anxiety Asthma Surgical History History of carpal tunnel surgery of right wrist Hx of section Hx of hysterectomy Family History Family History Mother Breast cancer Social History Social History Are you a primary animal care taker to a significant other at home: No Do you presently have visiting nurse or other home services: No Alcohol intake: never Patient Tobacco Use Status: Former Tobacco user Smoked in Last 30 Days: No Use of substances other than those prescribed or required for medical reasons: No Advance Directives: No Advance Directives Information Provided: Yes Patient : No Current occupational status: unemployed Physical Exam Vital Signs: Vital Signs: Last Vital Signs Temp 96.7 F L 02/22/23 06:22 Pulse 78 02/22/23 06:22 Resp 16 02/22/23 06:22 BP 128/79 02/22/23 06:22 Pulse Ox 100 02/22/23 06:22 O2 Del Method Room Air 02/22/23 06:22 BMI result Body Mass Index 41.6 Vital signs stable Appearance: Alert.? Oriented X3.? No acute distress.? Head: Normocephalic, atraumatic, no step-offs or deformities Eyes: Pupils equal, round and reactive to light.? CVS: Normal heart rate and rhythm.? Pulses normal.? Respiratory: No respiratory distress.? Breath sounds normal.? Abdomen: Soft and nontender.? Skin: Skin warm and dry.? Normal skin color.? Normal skin turgor.? Extremities: No lower extremity edema.? No calf ttp. 5/5 strength to bilateral upper and lower extremities. No erythema or obvious deformity to the left hip. Left hip with full ROM intact. Point tenderness to the lateral left hip overlying the femoral trocanter. NV intact distally. Negative lewis sign b/l. Back: No midline tenderness, no C-spine tenderness, full range of motion Neuro: Oriented X 3.? No motor deficit.? No sensory deficit. CN 2-12 intact. Ambulating with steady gait. No saddle paresthesias. Course Reevaluation(s) Reevaluation #1: On re-evaluation, patient's left hip pain has somewhat decreased with Toradol Flexeril. Will re-evaluate when patient receives Lidoderm patch. X-ray of the left hip unremarkable, you fracture dislocation. CBC without anemia or leukocytosis. CMP without acute electrolyte abnormalities requiring intervention. This supports that unlikely septic joint. XR hip LT w PEL1V IMPRESSION: Normal left hip. Time: 08:29 Reevaluation #2: Will discharge patient home with Toradol, Lidoderm patches, cyclobenzaprine, prednisone 50 mg p.o. x5 days. Advised her to follow-up with the orthopedic team. Educated patient on diagnosis and treatment plan, answered all question, patient verbalizes understanding. At this time patient will be discharged home, advised to return with new or worsening symptoms. Educated on worrisome signs and symptoms and when to return. At this time I feel comfortable discharge home. Time: 09:03 Medications Administered Discontinued Medications Generic Name Dose Route Start Last Admin Trade Name Freq PRN Reason Stop Dose Admin Cyclobenzaprine HCl 10 mg 02/22/23 07:11 02/22/23 07:26 Cyclobenzaprine Hcl 10 Mg Tablet PO 02/22/23 07:12 10 mg ONCE ONE Administration Ketorolac Tromethamine 30 mg 02/22/23 07:06 02/22/23 07:25 Ketorolac Tromethamine 15 Mg/Ml Vial IM 09/04/23 07:07 30 mg ONCE ONE Administration Lidocaine 1 patch 02/22/23 07:27 02/22/23 08:33 Lidocaine 4 % Patch Adh..Patch TRANSDERMA 02/22/23 07:28 1 patch ONCE ONE Administration Protocol Medical Decision Making Medical Decision Making [facility] Narrative: 0653 47 yo female with L hip pain + radiation to LLE Exam unremarkable. Lungs CTA b/l. RRR without MRG. No erythema or obvious deformity to the left hip. Left hip with full ROM intact. Point tenderness to the lateral left hip overlying the femoral trocanter. NV intact distally. Negati ve lewis sign b/l. This is likely musculoskeletal sprain vs strain vs bursitis vs sciatica vs arthr itis vs gout. Unlikely fracture vs dislocation. Not consistent with DVT, arterial occlusion, compartment syndrome, NV compromise, threat to limb, osteo, or septic joint, cauda equina or disc herniation. Differential Diagnosis Differential Diagnoses: The differential diagnosis associated with the presentation includes This is likely musculoskeletal sprain vs strain vs bursitis vs sciatica vs arthritis vs gout. Unlikely fracture vs dislocation. Not consistent with DVT, arterial occlusion, compartment syndrome, NV compromise, threat to limb, osteo, or septic joint, cauda equina or disc herniation. Admission/Observation Consideration of admission/observation: Escalation of care including admission/observation considered Lab Data [facility] Lab Attestation statement: I reviewed the patient's lab results. As above. 02/22/23 08:18 02/22/23 08:18 Labs: Lab Results 02/22/23 02/22/23 02/22/23 Range/Units 08:18 08:18 08:18 WBC 10.5 (4.8-10.8) X10*3/uL RBC 4.89 (4.20-5.50) X10*6/uL Hgb 12.2 (12.0-16.0) g/dl Hct 38.1 (37.0-47.0) % MCV 77.9 L (80.0-98.0) fL MCH 24.9 L (27.0-33.0) pg MCHC 32.0 (31.0-35.0) g/dl RDW 13.9 (11.0-16.0) % Plt Count 365 (160-400) X10*3/uL MPV 9.4 (9.4-12.3) fL Immature Gran % (Auto) 0.5 H (0.0-0.4) % Neut % (Auto) 69.8 (45-73) % Lymph % (Auto) 18.6 L (20-40) % Stephens % (Auto) 9.7 (2-11) % Eos % (Auto) 1.0 (0-4) % Baso % (Auto) 0.4 (0-2) % Lymph # (Auto) 2.0 (1.2-4.9) X10*3/uL Stephens # (Auto) 1.0 (0.1-1.2) X10*3/uL Eos # (Auto) 0.1 (0.0-0.4) X10*3/uL Baso # (Auto) 0.0 (0.0-0.2) X10*3/uL Abs Immat Gran (auto) 0.05 H (0.00-0.03) X10*3/uL Absolute Neuts (auto) 7.3 (2.0-8.3) x10*3/uL Absolute Nucleated RBC 0.000 (0.0-0.012) X10*3/uL Nucleated RBC % (auto) 0.0 (0.0-0.2) /100WBC Sodium 138 (135-145) mmol/L Potassium 4.2 (3.3-5.1) mmol/L Chloride 107 (96-108) mmol/L Carbon Dioxide 26 (22-29) mmol/L Anion Gap 9 L (12-20) BUN 12 (9-16) mg/dL Creatinine 0.96 (0.5-1.4) mg/dL Estim Creat Clear Calc 80.1 Estimated GFR > 60 Random Glucose 116 H (60-115) mg/dL Calcium 9.1 (8.4-10.2) mg/dL Total Bilirubin 0.4 (0.0-1.0) mg/dL AST 13 (5-31) U/L ALT 17 (0-31) U/L Alkaline Phosphatase 82 (39-117) U/L C-Reactive Protein 1.42 H (< or = 0.50) mg/dL C-React Prot High Sens Cancelled Total Protein 6.6 (6.5-8.0) g/dL Albumin 3.5 (3.5-5.0) g/dL Independent Interpretation I performed an independent interpretation of an: Plain X-Ray Interpretation: Left hip x-ray without acute fracture or dislocation, agree with radiologist's interpretation. Radiology Impression Discussion of test interpretation with radiology: I have reviewed the radiologist's reading. Radiologist Impression: XR hip LT w PEL1V IMPRESSION: Normal left hip. Independent Historian Clinical information obtained from an independent historian. History obtained from or confirmed by: Spouse () External Record Review External record reviewed: Inpatient record Prescription Management I considered prescription management with: Pain Medication (Toradol, Flexeril, Lidoderm patch) Core Measures AMI core measures followed: Yes Measure exclusions: not indicated Critical Care Time Critical Care Time Critical Care Time: No Discharge Plan Discharge Clinical Impression: Bursitis, Musculoskeletal strain Patient Disposition: Home, Self-Care Instructions: Hip Bursitis (ED) Additional Instructions: Your labs were unremarkable. The x-ray of your hip did not show any acute fracture or dislocation. Your symptoms are most consistent with inflammation of the bursa around the hip. This is called bursitis. The treatment for this is NSAIDs, rest, ice. Please follow-up with your primary care provider this week. Return to the emergency department with new or worsening symptoms. In case of emergency call 911 Toradol has been sent to your pharmacy, you tolerated this well in the departmen t. Please take this as prescribed do not take this with ibuprofen, or other NSAIDs, do not mix this with alcohol. Side effects of this medication including increased risk for bleeding and possible kidney injury. Prescriptions: New cyclobenzaprine 10 mg tablet 10 mg PO BEDTIME PRN (Reason: muscle spasm) Qty: 7 0RF ketorolac 10 mg tablet 10 mg PO TID PRN (Reason: pain) 5 Days Qty: 15 0RF lidocaine 5 % adhesive patch,medicated 1 patch topical DAILY PRN (Reason: pain) Qty: 15 0RF Rx Instructions: leave on most painful area for up to 12 hrs prednisone 50 mg tablet 50 mg PO DAILY 5 Days Qty: 5 0RF No Action cholecalciferol (vitamin D3) 1,250 mcg (50,000 unit) capsule 1 cap PO QWEEK albuterol sulfate [ProAir HFA] 90 mcg/actuation Hfa Aerosol Inhaler 2 puff INHALATION 6XD PRN (Reason: Wheezing) ibuprofen 600 mg tablet 600 mg PO Q6H PRN (Reason: pain) Qty: 30 0RF cholecalciferol (vitamin D3) 1,250 mcg (50,000 unit) capsule 1,250 mcg PO QWEEK paroxetine HCl 20 mg tablet 20 mg PO DAILY hydroxyzine HCl 10 mg tablet 10 mg PO BID Referrals: [facility] Primary Care, [facility] [Provider Group] [facility] [Provider Group] - 1 week Stand Alone Forms: Work/School Release
[2023-02-22] MEDS: Ketorolac Tromethamine 15 MG/ML VIAL 30 MG IM (07:25)
[2023-02-22] MEDS: Cyclobenzaprine HCl 10 MG TABLET PO (07:26)
--- NOTE | 2023-02-22 07:29 | PC.NURSE ---
alert and oriented, respirations even and unlabored. medicated per the MAR for pain, awaiting results from x-ray. at bedside, call gomez within reach.
[2023-02-22 08:24] LABS: Basophils Percent Auto 0.4 % (0-2); Eosinophils Absolute Auto 0.1 X10*3/uL (0.0-0.4); Hematocrit 38.1 % (37.0-47.0); Hemoglobin 12.2 g/dl (12.0-16.0); Imm Gran Abs Auto 0.05 X10*3/uL (0.00-0.03); Imm Gran Pct Auto 0.5 % (0.0-0.4); Lymphocytes Percent Auto 18.6 % (20-40); MANUAL DIFF FLAG NO; Mean Corpuscular Hemoglobin 24.9 pg (27.0-33.0); Mean Corpuscular Volume 77.9 fL (80.0-98.0); Mean Platelet Volume 9.4 fL (9.4-12.3); Monocytes Percent Auto 9.7 % (2-11); Neutrophils Absolute Auto 7.3 x10*3/uL (2.0-8.3); Neutrophils Percent Auto 69.8 % (45-73); Platelet Count 365 X10*3/uL (160-400); Red Blood Count 4.89 X10*6/uL (4.20-5.50); Red Cell Distribution Width 13.9 % (11.0-16.0); White Blood Count 10.5 X10*3/uL (4.8-10.8)
[2023-02-22] MEDS: Lidocaine 4 % Patch ADH..PATCH 1 PATCH TRANSDERMA (08:33)
[2023-02-22 08:39] LABS: Alanine Aminotransferase 17 U/L (0-31); Albumin Level 3.5 g/dL (3.5-5.0); Alkaline Phosphatase 82 U/L (39-117); Anion Gap 9 (12-20); Aspartate Amino Transferase 13 U/L (5-31); Bilirubin Total 0.4 mg/dL (0.0-1.0); Blood Urea Nitrogen 12 mg/dL (9-16); Calcium 9.1 mg/dL (8.4-10.2); Carbon Dioxide 26 mmol/L (22-29); Chloride 107 mmol/L (96-108); Creatinine Clr Calc Pharmacy 80.1; Estimated Glomerular Filt Rate > 60; Glucose Random 116 mg/dL (60-115); Potassium 4.2 mmol/L (3.3-5.1); Sodium 138 mmol/L (135-145); Total Protein 6.6 g/dL (6.5-8.0)
--- NOTE | 2023-02-22 08:47 | PC.NURSE ---
labs obtained, lidocaine patch applied to left hip.
[2023-02-22 09:01] LABS: C Reactive Protein 1.42 mg/dL (< or = 0.50)
[2023-02-22 09:13] LABS: Erythrocyte Sedimentation Rate 16 MM/HR (0-20)
== END 2023-02-22 09:14 | disposition home or self-care (01) ==
PROVIDERS: Physician Assistant; Emergency Provider Emergency Medicine; PCP Nurse Practitioner Adult Health
DX: M70.72 Other bursitis of hip, left hip (principal); M25.552 Pain in left hip; Z79.899 Other long term (current) drug therapy; Z87.891 Personal history of nicotine dependence
CPT/HCPCS: 36415; 73502; 80053; 85025; 85652; 86140; 96372; 99284; J1885

== ENCOUNTER 2023-11-30 12:36 | Emergency (ER) | payer OTHER, SELFPAY ==
--- NOTE | 2023-11-30 | ECG_ITS ---
Test Reason : CP Blood Pressure : / mmHG Vent. Rate : 104 BPM Atrial Rate : 104 BPM P-R Int : 134 ms QRS Dur : 084 ms QT Int : 362 ms P-R-T Axes : 060 040 021 degrees QTc Int : 476 ms Sinus tachycardia Otherwise normal ECG When compared with ECG of 17-NOV-2018 18:15, Vent. rate has increased BY 37 BPM QT has lengthened Referred By: Generic ED Physician Electronically Signed By:KATERINA QUICK
--- NOTE | ~2023-11-30 | XR_ITS ---
EXAMINATION: XR CHEST CLINICAL INFORMATION: COMPARISON: None available. TECHNIQUE: 2 views of the chest were obtained. FINDINGS: No significant abnormality is noted involving the heart, lungs, mediastinum, bony thorax or soft tissues. XR/XR chest 2V IMPRESSION: Unremarkable examination.
[2023-11-30 13:51] VITALS: BP 146/82; PULSE 82; RESP 18; TEMP 36.6; O2SAT 100; BMI 42.4
--- NOTE | 2023-11-30 13:53 | ED.LOWEXIN ---
HPI - Extremity Injury (Lower) General Chief Complaint: Chest Pain Stated Complaint: CP, low/high sugar or BP ? Related Data Home Medications ?Medication ?Instructions ?Recorded ?Confirmed cholecalciferol (vitamin D3) 1,250 1,250 mcg PO QWEEK 10/22/21 12/11/21 mcg (50,000 unit) capsule hydroxyzine HCl 10 mg tablet 10 mg PO BID 10/22/21 12/11/21 paroxetine HCl 20 mg tablet 20 mg PO DAILY 10/22/21 12/11/21 albuterol sulfate 90 mcg/actuation 2 puff inhalation 6XD PRN Wheezing 12/11/21 12/11/21 aerosol inhaler (ProAir HFA) cholecalciferol (vitamin D3) 1,250 1 cap PO QWEEK 12/11/21 12/11/21 mcg (50,000 unit) capsule Previous Rx's ?Medication ?Instructions ?Recorded ibuprofen 600 mg tablet 600 mg PO Q6H PRN pain #30 tabs 01/12/23 cyclobenzaprine 10 mg tablet 10 mg PO BEDTIME PRN muscle spasm 02/22/23 #7 tabs ketorolac 10 mg tablet 10 mg PO TID PRN pain 5 days #15 02/22/23 tabs lidocaine 5 % topical patch 1 patch topical DAILY PRN pain #15 02/22/23 ea prednisone 50 mg tablet 50 mg PO DAILY 5 days #5 tabs 02/22/23 Allergies Allergy/AdvReac Type Severity Reaction Status Date / Time No Known Allergies Allergy Verified 11/30/23 13:52 [facility] Past Medical History Medical History Anxiety Asthma Surgical History History of carpal tunnel surgery of right wrist Hx of section Hx of hysterectomy Family History Family History Mother Breast cancer Social History Social History Are you a primary home care companion to a significant other at home: No Do you presently have visiting nurse or other home services: No Alcohol intake: never Patient Tobacco Use Status: Former Tobacco user Advance Directives: No Advance Directives Information Provided: No Do you have a plan to hurt others: No Plan Current occupational status: unemployed Physical Exam Vital Signs: Vital Signs: Last Vital Signs Temp 97.9 F 11/30/23 13:51 Pulse 82 11/30/23 13:51 Resp 18 11/30/23 13:51 BP 146/82 H 11/30/23 13:51 Pulse Ox 100 11/30/23 13:51 O2 Del Method Room Air 11/30/23 13:51 BMI result Body Mass Index 42.4 Course Course Course Narrative: This is a Rapid Medical Examination (RME) performed by Alvaro Sierra PA-C in triage. Full HPI, ROS, assessment and treatment plan per primary provider in the Main ED. 48-year-old female here for eval of episode of dizziness, shaking, hot/cold feeling, nausea, chest discomfort which lasted around 20 minutes while she was in the kitchen this morning. no known sick contacts. Patient is slightly hypertensive however vitals otherwise WNL. She is well-appearing in triage. exam nonfocal. Plan: labs, trop, cxr, ekg ordered Reevaluation(s) Reevaluation #1: Patient left the ED without completing treatment Medical Decision Making Lab Data 11/30/23 14:05 11/30/23 14:05 Labs: Lab Results 11/30/23 11/30/23 Range/Units 12:45 14:05 WBC 10.2 (4.8-10.8) X10*3/uL RBC 5.37 (4.20-5.50) X10*6/uL Hgb 13.6 (12.0-16.0) g/dl Hct 42.1 (37.0-47.0) % MCV 78.4 L (80.0-98.0) fL MCH 25.3 L (27.0-33.0) pg MCHC 32.3 (31.0-35.0) g/dl RDW 14.6 (11.0-16.0) % Plt Count 396 (160-400) X10*3/uL MPV 9.8 (9.4-12.3) fL Immature Gran % (Auto) 0.6 H (0.0-0.4) % Neut % (Auto) 77.7 H (45-73) % Lymph % (Auto) 14.9 L (20-40) % Wheeler % (Auto) 5.6 (2-11) % Eos % (Auto) 0.7 (0-4) % Baso % (Auto) 0.5 (0-2) % Lymph # (Auto) 1.5 (1.2-4.9) X10*3/uL Wheeler # (Auto) 0.6 (0.1-1.2) X10*3/uL Eos # (Auto) 0.1 (0.0-0.4) X10*3/uL Baso # (Auto) 0.1 (0.0-0.2) X10*3/uL Abs Immat Gran (auto) 0.06 H (0.00-0.03) X10*3/uL Absolute Neuts (auto) 7.9 (2.0-8.3) x10*3/uL Absolute Nucleated RBC 0.000 (0.0-0.012) X10*3/uL Nucleated RBC % (auto) 0.0 (0.0-0.2) /100WBC PT 11.4 (11.1-13.3) SEC INR 0.9 (0.9-1.1) Sodium 138 (135-145) mmol/L Potassium 4.1 (3.3-5.1) mmol/L Chloride 106 (96-108) mmol/L Carbon Dioxide 25 (22-29) mmol/L Anion Gap 11 L (12-20) BUN 10 (9-16) mg/dL Creatinine 0.84 (0.5-1.4) mg/dL Estim Creat Clear Calc 95.2 Estimated GFR > 60 POC Glucose 148 H (60-115) mg/dL Random Glucose 156 H (60-115) mg/dL Calcium 8.9 (8.4-10.2) mg/dL Magnesium 1.8 (1.6-2.6) mg/dL Total Bilirubin 0.2 (0.0-1.0) mg/dL AST 19 (5-31) U/L ALT 24 (0-31) U/L Alkaline Phosphatase 85 (39-117) U/L Troponin I High Sens < 2.7 (<3.5-17.0) ng/L Total Protein 7.3 (6.5-8.0) g/dL Albumin 3.8 (3.5-5.0) g/dL Lipase 10 (8-78) U/L Discharge Plan Discharge Clinical Impression: Dizziness Patient Disposition: Left W/O Completing Treatment Prescriptions: No Action cholecalciferol (vitamin D3) 1,250 mcg (50,000 unit) capsule 1 cap PO QWEEK albuterol sulfate [ProAir HFA] 90 mcg/actuation Hfa Aerosol Inhaler 2 puff INHALATION 6XD PRN (Reason: Wheezing) cyclobenzaprine 10 mg tablet 10 mg PO BEDTIME PRN (Reason: muscle spasm) Qty: 7 0RF ketorolac 10 mg tablet 10 mg PO TID PRN (Reason: pain) 5 Days Qty: 15 0RF lidocaine 5 % adhesive patch,medicated 1 patch topical DAILY PRN (Reason: pain) Qty: 15 0RF Rx Instructions: leave on most painful area for up to 12 hrs prednisone 50 mg tablet 50 mg PO DAILY 5 Days Qty: 5 0RF ibuprofen 600 mg tablet 600 mg PO Q6H PRN (Reason: pain) Qty: 30 0RF cholecalciferol (vitamin D3) 1,250 mcg (50,000 unit) capsule 1,250 mcg PO QWEEK paroxetine HCl 20 mg tablet 20 mg PO DAILY hydroxyzine HCl 10 mg tablet 10 mg PO BID Discharge Date/Time: 11/30/23 23:17
[2023-11-30 14:16] LABS: MANUAL DIFF FLAG NO
[2023-11-30 14:19] LABS: Basophils Absolute Auto 0.1 X10*3/uL (0.0-0.2); Basophils Percent Auto 0.5 % (0-2); Eosinophils Absolute Auto 0.1 X10*3/uL (0.0-0.4); Eosinophils Percent Auto 0.7 % (0-4); Hematocrit 42.1 % (37.0-47.0); Hemoglobin 13.6 g/dl (12.0-16.0); Imm Gran Abs Auto 0.06 X10*3/uL (0.00-0.03); Imm Gran Pct Auto 0.6 % (0.0-0.4); Lymphocytes Absolute Auto 1.5 X10*3/uL (1.2-4.9); Lymphocytes Percent Auto 14.9 % (20-40); Mean Corpuscular HGB Conc 32.3 g/dl (31.0-35.0); Mean Corpuscular Hemoglobin 25.3 pg (27.0-33.0); Mean Corpuscular Volume 78.4 fL (80.0-98.0); Mean Platelet Volume 9.8 fL (9.4-12.3); Monocytes Absolute Auto 0.6 X10*3/uL (0.1-1.2); Monocytes Percent Auto 5.6 % (2-11); Neutrophils Absolute Auto 7.9 x10*3/uL (2.0-8.3); Neutrophils Percent Auto 77.7 % (45-73); Platelet Count 396 X10*3/uL (160-400); Red Blood Count 5.37 X10*6/uL (4.20-5.50); Red Cell Distribution Width 14.6 % (11.0-16.0); White Blood Count 10.2 X10*3/uL (4.8-10.8)
[2023-11-30 14:24] LABS: INTERNATIONAL NORM RATIO 0.9 (0.9-1.1); Prothrombin Time 11.4 SEC (11.1-13.3)
[2023-11-30 14:35] LABS: Alanine Aminotransferase 24 U/L (0-31); Albumin Level 3.8 g/dL (3.5-5.0); Alkaline Phosphatase 85 U/L (39-117); Anion Gap 11 (12-20); Aspartate Amino Transferase 19 U/L (5-31); Bilirubin Total 0.2 mg/dL (0.0-1.0); Blood Urea Nitrogen 10 mg/dL (9-16); Calcium 8.9 mg/dL (8.4-10.2); Carbon Dioxide 25 mmol/L (22-29); Chloride 106 mmol/L (96-108); Creatinine Clr Calc Pharmacy 95.2; Estimated Glomerular Filt Rate > 60; Glucose Random 156 mg/dL (60-115); Lipase 10 U/L (8-78); Magnesium 1.8 mg/dL (1.6-2.6); Potassium 4.1 mmol/L (3.3-5.1); Sodium 138 mmol/L (135-145); Total Protein 7.3 g/dL (6.5-8.0)
[2023-11-30 14:44] LABS: Troponin-I High Sensitivity < 2.7 ng/L (<3.5-17.0)
[2023-12-01 07:34] LABS: Glucose, Whole Blood 148 mg/dL (60-115)
== END 2023-11-30 23:17 | disposition left against medical advice (07) ==
LOC: HO.ED 22:50
PROVIDERS: Physician Assistant Medical; Emergency Provider Emergency Medicine
DX: R42 Dizziness and giddiness (principal); R07.89 Other chest pain; Z79.899 Other long term (current) drug therapy
CPT/HCPCS: 36415; 71046; 80053; 82947; 83690; 83735; 84484; 85025; 85610; 93005; 99283

== ENCOUNTER → 2023-11-30 12:40 | Outpatient (BNV) | payer MEDICAID, SELFPAY | PROVIDERS: Visit Provider Internal Medicine | DX: R07.9 Chest pain, unspecified (principal) | CPT/HCPCS: 93010 ==

== ENCOUNTER 2024-10-02 08:54 | Emergency (ER) | payer MEDICAID, SELFPAY ==
--- NOTE | ~2024-10-02 | XR_ITS ---
EXAMINATION: XR LUMBOSACRAL SPINE CLINICAL INFORMATION: back pain COMPARISON: None available. TECHNIQUE: Three views of the lumbosacral spine. FINDINGS: No scoliosis. Mild straightening of the lordosis. No malalignment or subluxation. No compression deformity, acute fracture, or suspicious bone lesion. Mild diffuse disc degeneration. Early facet degeneration L4-S1. Normal facet alignment. Soft tissues appear normal aside from early vascular calcifications. XR/XR lumbar spine 2-3V IMPRESSION: No acute findings of the lumbar spine. Mild spondylosis. Electronically signed by: Erik Nina MD 10/02/2024 10:21 AM EDT
--- NOTE | ~2024-10-02 | XR_ITS ---
EXAMINATION: XR SACROILIAC JOINTS CLINICAL INFORMATION: pain COMPARISON: None available. TECHNIQUE: 3 views of the sacroiliac joints FINDINGS: Bones and soft tissues are normal. No fracture. Alignment is anatomic. Sacroiliac joint spaces are well-maintained without erosions or surrounding sclerosis. XR/XR sacroiliac joint 1-2V IMPRESSION: Normal sacroiliac joints. Electronically signed by: Erik Nina MD 10/02/2024 10:22 AM EDT
[2024-10-02 09:20] VITALS: BP 158/80; PULSE 77; RESP 18; TEMP 36.5; O2SAT 100; BMI 36.5
--- NOTE | 2024-10-02 09:21 | ED.BACK ---
HPI - Back Pain/Injury General Chief Complaint: Back Pain/Injury Stated Complaint: Back Pain No Injury Time Seen by Provider: 10/02/24 10:12 Source: patient and RN notes reviewed Mode of arrival: ambulatory Limitations: no limitations History of Present Illness ED Provider: Iva Toussaint PA-C HPI Narrative: This is a 20-rera-vks-female, with a hx of asthma and back pain, who presents to the ER with complaints of back pain x 3 days. She denies any recent trauma or injury. Patient reports that over the last several days she has had worsening pain, worsening with movement. She states that the pain starts in her right low back and radiates down into her right leg. She denies any saddle anesthesia. No urinary or bowel retention or incontinence. She states that she has a history of back pain however no formal diagnoses. She has been taking ibuprofen for her symptoms which has provided her with some relief. No other complaints or concerns at this time. MD elicited complaint: back pain Pertinent past history: prior back pain Onset (ago): day(s) Timing: constant Severity: moderate Similar Symptoms Previously: Yes Location: lumbar spine Radiation: right leg below the knee Exacerbating factors: immobilization and movement Relieving factors: immobilization Associated symptoms: denies other symptoms Treatments prior to arrival: NSAIDS Related Data Home Medications ?Medication ?Instructions ?Recorded ?Confirmed cholecalciferol (vitamin D3) 1,250 1,250 mcg PO QWEEK 10/22/21 12/11/21 mcg (50,000 unit) capsule hydroxyzine HCl 10 mg tablet 10 mg PO BID 10/22/21 12/11/21 paroxetine HCl 20 mg tablet 20 mg PO DAILY 10/22/21 12/11/21 albuterol sulfate 90 mcg/actuation 2 puff inhalation 6XD PRN Wheezing 12/11/21 12/11/21 aerosol inhaler (ProAir HFA) cholecalciferol (vitamin D3) 1,250 1 cap PO QWEEK 12/11/21 12/11/21 mcg (50,000 unit) capsule Previous Rx's ?Medication ?Instructions ?Recorded ibuprofen 600 mg tablet 600 mg PO Q6H PRN pain #30 tabs 01/12/23 cyclobenzaprine 10 mg tablet 10 mg PO BEDTIME PRN muscle spasm 02/22/23 #7 tabs ketorolac 10 mg tablet 10 mg PO TID PRN pain 5 days #15 02/22/23 tabs lidocaine 5 % topical patch 1 patch topical DAILY PRN pain #15 02/22/23 ea prednisone 50 mg tablet 50 mg PO DAILY 5 days #5 tabs 02/22/23 acetaminophen 500 mg tablet 1,000 mg (2 x 500 mg) PO Q8H PRN 10/02/24 (Tylenol Extra Strength) pain #30 tabs cyclobenzaprine 10 mg tablet 10 mg PO TID PRN muscle spasm #14 10/02/24 tabs lidocaine 5 % topical patch 1 patch topical DAILY #30 ea 10/02/24 prednisone 20 mg tablet 40 mg (2 x 20 mg) PO DAILY 5 days 10/02/24 #10 tabs Allergies Allergy/AdvReac Type Severity Reaction Status Date / Time No Known Allergies Allergy Verified 10/02/24 09:22 Review of Systems Review of Systems: Yes all other systems are reviewed and are negative Constitutional: Constitutional: Reports as per [facility] Past Medical History Attestation statement: The following information was validated with the patient. Medical History Anxiety Asthma Surgical History History of carpal tunnel surgery of right wrist Hx of hysterectomy Hx of section Family History Family History Mother Breast cancer Social History Social History Are you a primary care connector to a significant other at home: No Do you presently have visiting nurse or other home services: No Alcohol intake: never Patient Tobacco Use Status: Former Tobacco user Advance Directives: No Advance Directives Information Provided: Yes Current occupational status: unemployed Physical Exam Vital Signs: Vital Signs: Last Vital Signs Temp 97.7 F 10/02/24 09:20 Pulse 77 10/02/24 09:20 Resp 18 10/02/24 09:20 BP 158/80 H 10/02/24 09:20 Pulse Ox 100 10/02/24 09:20 O2 Del Method Room Air 10/02/24 09:20 BMI result Body Mass Index 36.5 Const: General: cooperative, comfortable and no acute distress Orientation/consciousness: patient oriented x3 Limitations: no limitations HEENT: Head: Yes normal to inspection, Yes normocephalic and Yes atraumatic Ears: hearing grossly normal bilaterally General nose exam: Normal external nose present Face and sinus: Yes normal facial exam Mouth: Normal oral and palatal mucosa present, oropharynx normal and moist mucous membranes Throat: Yes posterior oropharynx normal Eyes: General: appearance normal, both eyes and all related structures Eyelids: Yes eyelids normal Conjunctivae: conjunctivae normal Sclerae: sclerae normal Pupils: Equal, round and reactive pupils present EOM: EOMs intact bilaterally Neck: Neck: Yes normal visual inspection, Yes full ROM and Yes no lymphadenopathy Lymphatic: no lymphadenopathy noted Chest: Chest palpation & inspection: normal inspection of the chest Resp: Effort & Inspection: normal respiratory effort and able to speak in complete sentences Auscultation: clear to auscultation bilaterally, no crackles, no rales, no rhonchi and no wheezes Cardio: Rate: regular rate Rhythm: regular rhythm Heart sounds: S1 normal heart sound present and S2 normal heart sound present GI: Inspection: Yes normal to inspection Back/Spine/Pelvis: Other: Patient has tenderness palpation along the right low back, extending into her right SI joint. She was ambulatory with steady gait. Distal sensation circulation intact. Strength 5/5 in lower extremities. DTRs are 2+. No calf tenderness. Skin: General skin exam: no rashes or lesions noted Trauma: no lacerations or abrasions Wounds: no wounds Neuro: General: patient oriented x3 and moves all extremities Cranial nerves: Yes Equal, round and reactive pupils present Extrem: General: Yes normal to inspection Right upper extremity: normal to inspection Left upper extremity: normal to inspection Right lower extremity: normal to inspection Left lower extremity: normal to inspection Course Reevaluation(s) Reevaluation #1: X-rays reviewed as normal SI joints, and mild spondylosis. Discussed findings with patient. Patient will be medicated with Toradol 15 mg IM, and lidocaine patch. We will continue to monitor pending symptomatic improvement. Reevaluation #2: Patient feeling much better after receiving Toradol. Symptoms consistent with lumbar radiculopathy. Given strict return precautions. She understands agrees with plan. Patient stable for discharge. Time: 12:33 Medications Administered Discontinued Medications Generic Name Dose Route Start Last Admin Trade Name Freq PRN Reason Stop Dose Admin Ketorolac Tromethamine 15 mg 10/02/24 11:30 10/02/24 11:58 Ketorolac Tromethamine 15 Mg/Ml Vial IM 10/02/24 11:31 15 mg ONCE ONE Administration Lidocaine 1 patch 10/02/24 11:30 10/02/24 11:58 Lidocaine 4 % Patch Adh..Patch TRANSDERMA 10/02/24 11:31 1 patch ONCE ONE Administration Protocol Medical Decision Making Medical Decision Making MDM Narrative: This is a 48-year-old female who presents emergency department with complaints of low back pain for the last 3 days. On arrival, patient mildly hypertensive at 158/80, no other abnormal vital signs. She was ambulatory with steady gait. She was tenderness palpation along her right SI joint, and right lumbar back. This patient presents with back pain most consistent with lumbar radiculopathy. Differential diagnoses includes lumbago versus musculoskeletal spasm / strain versus sciatica. No back pain red flags on history or physical. Presentation not consistent with malignancy (lack of history of malignancy, lack of B symptoms), fracture (no trauma, no bony tenderness to palpation), cauda equina (no bowel or urinary incontinence/retention, no saddle anesthesia, no distal weakness), renal colic, pyelonephritis (afebrile, no CVAT, no urinary symptoms). X-rays were obtained revealing normal SI joint. Differential Diagnosis Differential Diagnoses: The differential diagnosis associated with the presentation includes See above Radiology Impression Discussion of test interpretation with radiology: I have reviewed the radiologist's reading. Radiologist Impression: EXAMINATION: XR SACROILIAC JOINTS CLINICAL INFORMATION: pain COMPARISON: None available. TECHNIQUE: 3 views of the sacroiliac joints FINDINGS: Bones and soft tissues are normal. No fracture. Alignment is anatomic. Sacroiliac joint spaces are well-maintained without erosions or surrounding sclerosis. XR/XR sacroiliac joint 1-2V IMPRESSION: Normal sacroiliac joints. Electronically signed by: Erik Nina MD 10/02/2024 10:22 AM EDT Dictated By: Erik Nina MD Discharge Plan Discharge Clinical Impression: Acute lumbar radiculopathy Patient Disposition: Home, Self-Care Instructions: Acute Low Back Pain (ED), Lumbar Radiculopathy (ED), Lower Back Exercises (ED) Additional Instructions: You were seen in the emergency department due to back pain. Your symptoms are consistent with lumbar radiculopathy and/or sciatica. This can cause pain with compression of your nerve causing you to have pain down your right leg. Please take prescribed medication as directed. Prednisone is an anti-inflammatory. Take Tylenol as needed for pain. Use lidocaine patches. Alternate between ice and heat as needed. Follow-up with your primary care physician regarding this visit. Muscle relaxants can help with your symptoms, please be advised that this can cause drowsiness, do not drink alcohol or drive while taking this medication. If any new or worsening symptoms occur including but not limited to severe chest pain, shortness of breath, tingling into your groin, loss of bladder or bowel control, please seek emergent care. Prescriptions: New prednisone 20 mg tablet 40 mg PO DAILY 5 Days Qty: 10 0RF lidocaine 5 % adhesive patch,medicated 1 patch topical DAILY Qty: 30 0RF Rx Instructions: leave on most painful area for up to 12 hrs cyclobenzaprine 10 mg tablet 10 mg PO TID PRN (Reason: muscle spasm) Qty: 14 0RF acetaminophen [Tylenol Extra Strength] 500 mg tablet 1,000 mg PO Q8H PRN (Reason: pain) Qty: 30 0RF No Action cholecalciferol (vitamin D3) 1,250 mcg (50,000 unit) capsule 1 cap PO QWEEK albuterol sulfate [ProAir HFA] 90 mcg/actuation Hfa Aerosol Inhaler 2 puff INHALATION 6XD PRN (Reason: Wheezing) cyclobenzaprine 10 mg tablet 10 mg PO BEDTIME PRN (Reason: muscle spasm) Qty: 7 0RF ketorolac 10 mg tablet 10 mg PO TID PRN (Reason: pain) 5 Days Qty: 15 0RF lidocaine 5 % adhesive patch,medicated 1 patch topical DAILY PRN (Reason: pain) Qty: 15 0RF Rx Instructions: leave on most painful area for up to 12 hrs prednisone 50 mg tablet 50 mg PO DAILY 5 Days Qty: 5 0RF ibuprofen 600 mg tablet 600 mg PO Q6H PRN (Reason: pain) Qty: 30 0RF cholecalciferol (vitamin D3) 1,250 mcg (50,000 unit) capsule 1,250 mcg PO QWEEK paroxetine HCl 20 mg tablet 20 mg PO DAILY hydroxyzine HCl 10 mg tablet 10 mg PO BID Referrals: [place] [Physician] - Print Language: Azerbaijani
--- OUTSIDE RECORDS SUMMARY | 2024-10-02 11:31 | XMS_ITS | Clinical Summary ---
Author Organization [employer] Address [address] [place] [address] Care Team Providers Care Pharmacy Sales Assistant Name Role Phone Unavailable Primary Care Provider Unavailabl e Medications * This document contains information received from the source organization and may not represent a complete record from that organization. cyclobenzaprine (Flexeril) 10 MG tablet TAKE 1 TABLET BY MOUTH EVERY DAY AT BEDTIME NEEDED FOR MUSCLE SPASMS 02/22/2023 Active hydrOXYzine HCl (Atarax) 10 MG tablet TAKE 2 TABLETS BY MOUTH EVERY DAY AT BEDTIME NEEDED ITCHING 02/27/2023 Active ketorolac (Toradol) 10 MG tablet TAKE 1 TABLET BY MOUTH 3 TIMES A DAY FOR 5 DAYS NEEDED FOR PAIN 02/22/2023 Active lidocaine (Lidoderm) 5 % patch APPLY 1 PATCH TO MOST PAINFUL AREA DAILY (12 HOURS ON, 12 HOURS OFF) NEEDED FOR PAIN 02/22/2023 Active meloxicam (Mobic) 15 MG tablet Take 15 mg by mouth in the morning. 02/28/2023 Active predniSONE (Deltasone) 50 MG tablet TAKE 1 TABLET BY MOUTH EVERY DAY FOR 5 DAYS 02/22/2023 Active Active Problems Problem Noted Date Diagnosed Date Generalized anxiety disorder 09/07/2024 Assessment & Plan (09/11/2024 10:17 AM EDT): During [facility] Consult Lucia presenting with excessive worry/anxiety, difficulty controlling worry, anxiety/worry associated to restlessness and/or feeling keyed-up/On edge , easily fatigued , difficulty concentrating and/or mind going blank , irritability, muscle tension , and sleep disturbance difficulty falling asleep and difficulty staying asleep , Fear , and sense of dread and Decreased need for sleep, Changes in self-image, and Other: visual and auditory hallucinations with no commands; for a period of 18+ mo, for some symptoms in the context of unable to identify significant stressors. Pt reported being unable to manage presentation of sxs described above. Anxiety symptoms have been increasing significantly over the last two years with no specific trigger associated with it. Hx of childhood trauma, severe sleeping problem and untreated MH leads to pt feeling emotional overwhelmed. Lucia is a new patient and is currently on waiting list for primary care. She was self-referred to [facility] for sooner OP appointments. Pt will be referred for medication management with [facility] provider, Trevon Zapata. Encounters * This document contains information received from the source organization and may not represent a complete record from that organization. Date Type Department Care Team Description 09/20/2024 Population Health Risk Score [facility] () Department [address] [place] [address] [phone] Provider, Population Health Generic 09/07/2024 Travel from Last 3 Months Social History Tobacco Use Types Packs/Day Years Used Date Smoking Tobacco: Former Cigarettes Tobacco Cessation:Counseling Given: Not Answered Comments Unknown Sex and Gender Information Value Date Recorded Sex Assigned at Female 04/20/2022 10:33 AM EDT Legal Sex Female 10:33 AM EDT Gender Identity Choose not to disclose 10:33 AM EDT Sexual Orientation Choose not to disclose 2021 10:33 AM EDT Plan of Treatment Health Maintenance Due Date Last Done Comments CT Colonography 1977 Colonoscopy 1977 Colorectal Cancer Screening 1977 Depression Screening 1977 FIT DNA/Cologuard 1977 FIT 1977 FOBT 1977 HIV Screening 1977 Lipid Panel 1977 SDOH Screening 1977 Sigmoidoscopy 1977 Alcohol/Substance Use Screening 1989 Family Planning (PISQ) 1992 Hepatitis C Screening 11/12/1995 DTaP/Tdap/Td Vaccines (1 - Tdap) 1996 Hepatitis B Vaccines (1 of 3 - 19+ 3-dose series) 1996 Pap Smear 1998 Cervical Cancer Screening 11/12/2007 HPV/Cotest 11/12/2007 Mammogram 2017 Dental Oral Exam 10/21/2021 04/22/2021, 12/08/2018, 09/23/2017 Dental Prophylaxis 10/21/2021 04/22/2021, 09/24/2017 Dental X-Ray: Bitewings 04/23/2022 04/22/20 21, 12/08/2018, 09/23/2017 COVID-19 Vaccine (3 - 2023-2 5 season) 2024 01/20/2021, 12/30/2020 Influenza Vaccine (#1) 2024 Dental X-Ray: Full Mouth 04/23/2024 021, 09/23/2017 Tobacco Screening 04/30/2024 04/30/2023 Zoster Vaccines (1 of 2) 11/12/2027 RSV Patients and Patients Aged 60 years or older (1 - 1-dose 75+ series) 2052 HIB Vaccines Aged Out No longer eligi ble based on patient's age to complete this topic HPV Vaccines Aged Out No longer eligi ble based on patient's age to complete this topic Hepatitis A Vaccines Aged Out No long er eligible based on patient's age to complete this topic IPV Vaccines Aged Out No longer eligi ble based on patient's age to complete this topic Meningococcal Vaccine Aged Out No liu ferdinand eligible based on patient's age to complete this topic Pneumococcal Vaccine: Pediatrics (0 to 5 Years) and At-Risk Patients (6 to 49) Years) Aged Out No longer eligible b ased on patient's age to complete this topic RSV under 20 months Aged Out No longe r eligible based on patient's age to complete this topic Rotavirus Vaccines Aged Out No longer eligible based on patient's age to complete this topic Procedures Procedure Name Priority Date/Time Associated Diagnosis Comments PROPHYLAXIS - ADULT Routine 04/22/2021 1 2:00 AM EDT INTRAORAL - COMPLETE SERIES OF RADIOGRAPHIC IMAGES Routine 04/22/2021 12:00 AM EDT PERIODIC ORAL EVALUATION - ESTABLISHED PATIENT Routine 04/22/2021 12:00 AM EDT from Last 3 Months or Most Recently Relevant to Health Maintenance Insurance [facility] MEDICAID STAND ADULT
--- OUTSIDE RECORDS SUMMARY | 2024-10-02 11:31 | XMS_ITS | Data Portability ---
Author Organization [facility], [address] Address [address] [place] [address] Assessment No assessment recorded. Plan of Treatment Reminders Order Date Submit Date Provider Last Modified By Organization Details Last Modified Time Details Appointments None recorded. Lab None recorded. Referral orthopedic surgeon referral - Had surgery to right thumb and unable to flex it at DIP joint. need further evaluation and treatment. [address] [facility], [address], [place], [address], 3 17:39:21 Procedures None recorded. Surgeries None recorded. Imaging XR, finger(s), 2 or more view 2022 023 BRUNO [facility], [address] [place] [address], [address], 3 17:59:24 Medication Orders None recorded. Patient TargetsNo targets recorded. Patient Instructions Encounter Date Encounter Id Patient Instructions Last Modified By Organization Details Last Modified Time 10/26/2022 [id number] Thumb pain is a common complaint. The functional anatomy and examination of the thumb are described in the text. The history should focus on the mechanism of injury, while the examination should include assessment of all thumb movements and joint stability. ? Plain radiography's, including anteroposterior or posteroanterior, lateral, and oblique views, are the initial studies obtained to assess thumb injuries. Ultrasound can be useful for dynamic assessment of ligament injuries or imaging of other soft tissue pathology. Computed tomography may be needed to evaluate complex fractures. ? Thumb trauma often results in soft tissue injury. A simple laceration can be repaired once an examination is completed. Major skin and soft tissue wounds that extend to a fractured bone, lacerated tendons, or an open tendon sheath or joint capsule must be managed immediately, including referral to a hand surgeon. ? Obvious deformity of the thumb following trauma raises concern for fracture or dislocation. Fractures of either phalanx and dislocations of the metacarpophalangeal joint are most common. ? Joint instability following thumb trauma suggests a ligamentous injury. Tears of the ulnar collateral ligament and mallet thumb are most common. ? Nontraumatic thumb pain usually represents a chronic or vcjlj-oq-xbimtpa condition. Diagnoses to consider include stenosing flexor tenosynovitis (Trigger thumb), de Quervain? s tenosynovitis, arthritis, and carpal tunnel syndrome. Important elements of each diagnosis are described in the text, but more complete discussions are found separately. [email or web address] Not available 10/26/2022 17:10:12 Reason for Referral Orthopedic Surgeon Referral for Sprain of ligament of right thumb Had surgery to right thumb and unable to flex it at DIP joint. need further evaluation and treatment Had surgery to right thumb and unable to flex it at DIP joint. need further evaluation and treatment. Referring Physician: Ashu Dong, Urgent Care, Encounter Date: 10/26/2022 Results Created Date Observation Date Name Description Value Unit Range Abnormal Flag Note LastModifiedBy Organization Detail LastModifiedTime 10/27/19 23 10/26/2022 XR, finge r(s), 2 or more view No observ ation record ed. [email or web address] [facility] [address] [place], [address], 10/27/2022 19:54:32 Result Notes None recorded. Problems Name Problem SNOMED Code Status Onset Date Resolution Date Notes Provider Name and Address Organization Details Recorded Time Anxiety 74744281 Active [facility]NA Ortiz - [facility] 10/26/2022 16:58:56 Problem Notes None recorded. Procedures Surgical History None recorded. Imaging Results Imaging Date Name Status LastModified by Organiz ation Details LastModified Time 10/26/2022 XR, finger(s), 2 or more view completed [email or web address] [facility] [address] [facility] [place], [address], 10/27/2022 19:54:32 Procedure Notes None recorded. Medical Equipment None Reported. Allergies No known drug allergies Medications Name Sig Start Date Stop Date Status Note LastModified by Organization Details LastModified Time bupropion HCl SR 150 mg tablet,12 hr sustained-re lease TAKE 1 TABLET BY MOUTH TWICE A DAY FOR 30 DAYS active Not Available Not Available No t Available hydrocodone 5 mg-acetamino phen 325 mg tablet TAKE 1 TABLET BY MOUTH EVERY 8 HOURS NEEDED FOR PAIN FOR 7 DAYS active Not Available Not Available No t Available meloxicam 15 mg tablet TAKE 1 TABLET BY MOUTH EVERY DAY active Not Available Not Available No t Available paroxetine 20 mg tablet TAKE 1 TABLET BY MOUTH EVERY DAY active Not Available Not Available No t Available docusate sodium 100 mg capsule TAKE 1 CAPSULE BY MOUTH 3 TIMES A DAY NEEDED FOR CONSTIPATIO N active Not Available Not Available No t Available diclofenac sodium 75 mg tablet,delay ed release TAKE 1 TABLET BY MOUTH TWICE A DAY active Not Available Not Available No t Available paroxetine 40 mg tablet TAKE 1 TABLET BY MOUTH EVERY DAY active Not Available Not Available No t Available hydroxyzine HCl 10 mg tablet TAKE 2 TABLETS BY MOUTH EVERY DAY AT BEDTIME NEEDED ITCHING active Not Available Not Available No t Available oxycodone 5 mg tablet TAKE 1 TABLET BY MOUTH EVERY 6 HOURS NEEDED FOR PAIN active Not Available Not Available No t Available bupropion HCl XL 300 mg 24 hr tablet, extended release TAKE 1 TABLET BY MOUTH EVERY DAY active Not Available Not Available No t Available cholecalcife rol (vitamin D3) 1,250 mcg (50,000 unit) capsule TAKE 1 CAPSULE BY MOUTH ONCE A WEEK active Not Available Not Available No t Available Vitals Date Recorded Body height Body mass index (BMI) Body weight Oxygen saturation Oxygen saturation in Arterial blood by Pulse oximetry Pain severity - 0-10 verbal numeric rating [Score] - Reported Heart rate Respiratory rate Body temperature Systolic blood pressure Diastolic blood pressure Provider Name and Address Organization Details Last Updated DateTime 3 154.94 cm 41.4 kg/m2 21047.7 3 g 100 % 100 % 10 69 /min 18 /min 97.9 [degF] 144 mm[Hg] 89 mm[Hg] Duglas Kimble [place] - [facility] 16:58:14 Social History Question Answer Notes LastModified by Organizat ion Details LastModified Time Do You Use Any Illicit Or Recreational Drugs? No Information not available 10/26/2022 Do You Or Have You Ever Used Any Other Forms Of Tobacco Or Nicotine? No Information not available 10/26/2022 Sex: Unknown Functional Status None recorded. Mental Status None recorded. Family History Relationship Description Onset Age of this Age Resolved Age Notes LastModified by Organization Details LastModified Time Father No current problems or disability Not available 10/26 16:58:58 Mother No current problems or disability Not available 10/26 16:58:58 Medical History No medical history recorded. Gynecological HistoryNo gynecological history recorded. Obstetrics History GPAL:G 0 P 0 0 0 0 Immunizations Vaccine Type Date Status Note Provider Nam e and Address Organization Details Recorded Time COVID-19, mRNA, LNP-S, PF, 30 mcg/0.3 mL dose 12/30/2020 completed ELENA Ortiz [facility] 10/26/2022 16:58:39 COVID-19, mRNA, LNP-S, PF, 30 mcg/0.3 mL dose 01/20/2021 completed ELENA Ortiz [facility] 10/26/2022 16:58:39 Past Encounters Encounter ID Performer Location Encounter Start Date Encounter Closed Date Diagnosis/Indication Diagnosis SNOMED-CT Code Diagnosis ICD10 Code Diagnosis [place] [id number] [place] [id number] [facility] [address] [place] [address] 10/26/2022 16:15:56 10/26/2022 17:39:21 Sprain of ligament of right thumb [id number] S63.601A Health Concerns Section Related Observation LastModified by Organization Detai ls LastModified Time None Recorded Concern Status LastModified by Organization Details LastModified Time None Recorded Advance Directives Directive None Recorded Payers Encounter Date Sequence Insurance Name Policy Number Policy Amezcua Covered Member ID Amezcua Member ID Guarantor Name 10/26/2022 1 [facility] (MEDICAID HMO) [id number] Lucia Corona [id number] Lucia Corona Notes Date Note Type Note Provider Name and Address Organization Details Recorded Time 10/26/2022 text/html Wrist / Hand InjuryReported bypatient.source of patient informationPatient arrived at Urgent Care ambulatory Location:right; hand Associated Symptoms:no redness; no ecchymosis; no fever Severity:mild Duration:5 months Context:atraumatic Hand Dominance:right Aggravating Factors:gripping; ROM Previous InjuryPrior injury to right hand Previous Treatmentsurgical procedure: Prior Imaging:x ray Ashu Dong NP [address] [place], [address], [place] - [facility] 10/26/2022 17:35:53 OBGyn Episode No OBEpisode recorded.
--- OUTSIDE RECORDS SUMMARY | 2024-10-02 11:31 | XMS_ITS | Encounter Summary ---
Author Organization [employer] Address [address] [facility] [address] [place] [address] Care Team Providers Care Studio Couch Frame Builder Name Role Phone Maribel Liz OD Primary Care Provider [phone] Encounter Details Date Type Department Care Team (Latest Contact Info) Description 04/22/2021 Abstract [facility] CONVERSIONS Dental, Provider, DDS Social History Tobacco Use Types Packs/Day Years Used Date Smoking Tobacco: Never Assessed Comments Unknown Sex and Gender Information Value Date Recorded Sex Assigned at Female 04/20/2022 10:33 AM EDT Legal Sex Female 10:33 AM EDT Gender Identity Choose not to disclose 10:33 AM EDT Sexual Orientation Choose not to disclose 2021 10:33 AM EDT documented as of this encounter Plan of Treatment Not on file documented as of this encounter Visit Diagnoses Not on filedocumented in this encounter Care Teams Studio Couch Frame Builder Relationship Specialty Start Date End Date AgustoJorgenDULCE [address] [place] [address] PCP - General Optometry 12/31/17 06/27/23 documented as of this encounter
--- OUTSIDE RECORDS SUMMARY | 2024-10-02 11:31 | XMS_ITS | Clinical Summary ---
[facility] Organization [facility] Address [address] [place] [address] Care Team Providers Care Nurse Ldr Name Role Phone Tracy Martin MD Primary Care Provider [phone] Surgical History Surgery Date Site/Laterality Comments SECTION N/A PROCEDURE: [place] DELIVERY ONLY; COMMENT: x3 OTHER SURGICAL HISTORY N/A PROCEDURE: [place] TOT ABD HYST W/PARAORTIC & PELVIC LYMPH NODE SAHRA Social History Tobacco Use Types Packs/Day Years Used Date Smoking Tobacco: Never Smokeless Tobacco: Never Alcohol Use Standard Drinks/Week Comments Never 0 (1 standard drink = 0.6 oz pur e alcohol) Comments Unknown Sex and Gender Information Value Date Recorded Sex Assigned at Not on file Legal Sex Female 8:27 AM EST Gender Identity Not on file Sexual Orientation Not on file Obstetrics History Plan of Treatment Health Maintenance Due Date Last Done Comments Breast Cancer Screening 1977 DTaP,Tdap,and Td Vaccines (1 - Tdap) 1996 Hepatitis B Vaccines (1 of 3 - 19+ 3-dose series) 1996 Cervical Cancer Screening: P ap Smear 1998 COVID-19 Vaccine (2023-2 5 season) 2024 Influenza Vaccine (Season Ended) 2025 HIB Vaccines Aged Out No longer eligi [...] on patient's age to complete this topic MMR Vaccines Aged Out No longer eligi ble based on patient's age to complete this topic Meningococcal ACWY Vaccine Aged Out N o longer eligible based on patient's age to complete this topic Meningococcal B Vaccine Aged Out No l onger eligible based on patient's age to complete this topic Pneumococcal Vaccine: Pediat rics (0 to 5 Years) and At-Risk Patients (6 to 64 Years) Aged Out No longer eligible b ased on patient's age to complete this topic RSV Immunization Patients Un mario alberto 20 months Aged Out No longer eligible b ased on patient's age to complete this topic Varicella Vaccines Aged Out No longer eligible based on patient's age to complete this topic Care Teams Nurse Ldr Relationship Specialty Start Date End Date Tracy Martin MD PCP - General Internal Medicine 01/08/20
[2024-10-02] MEDS: Ketorolac Tromethamine 15 MG/ML VIAL IM (11:58)
[2024-10-02] MEDS: Lidocaine 4 % Patch ADH..PATCH 1 PATCH TRANSDERMA (11:58)
[2024-10-02 12:40] VITALS: BP 158/80; PULSE 77; RESP 18; TEMP 36.5; O2SAT 100
== END 2024-10-02 12:40 | disposition home or self-care (01) ==
PROVIDERS: Emergency Provider Emergency Medicine
DX: M54.50 Low back pain, unspecified (principal); M79.604 Pain in right leg; Z79.899 Other long term (current) drug therapy; Z87.891 Personal history of nicotine dependence
CPT/HCPCS: 72100; 72200; 96372; 99283; 99284; J1885

== ENCOUNTER → 2024-10-02 09:23 | Outpatient (BNV) | payer MEDICAID, SELFPAY | PROVIDERS: Emergency Provider Emergency Medicine; Visit Provider Radiology Diagnostic Radiology | DX: M54.50 Low back pain, unspecified (principal) | CPT/HCPCS: 72100; 72200 ==

== ENCOUNTER 2025-01-23 13:52 | Outpatient (REF) | payer MEDICAID, SELFPAY ==
--- OUTSIDE RECORDS SUMMARY | 2025-01-23 14:34 | XMS_ITS | Clinical Summary ---
[facility] Address [address] [place] [address] Care Team Providers Care Clinical Account Specialist Name Role Phone Tracy Martin MD Primary Care Provider [phone] Surgical History Surgery Date Site/Laterality Comments SECTION N/A PROCEDURE: [place] DELIVERY ONLY; COMMENT: x3 OTHER SURGICAL HISTORY N/A PROCEDURE: [place] TOT ABD HYST W/PARAORTIC & PELVIC LYMPH [...] Screening: P ap Smear 1998 COVID-19 Vaccine ( - 2023-2 5 season) 2024 Depression Screening 06/21/2024 Influenza Vaccine (#1) 2025 HIB Vaccines Aged Out No longer [...] 5 Years) and At-Risk Patients (6 to 49 Years) Aged Out No longer eligible b ased on patient's age to complete this topic RSV Immunization Patients Un mario alberto 20 months Aged Out No longer eligible b ased on patient's age to complete this topic Varicella Vaccines Aged Out No longer eligible based on patient's age to complete this topic Care Teams Clinical Account Specialist Relationship Specialty Start Date End Date Trayc Martin MD PCP - General Internal Medicine 01/08/20
--- OUTSIDE RECORDS SUMMARY | 2025-01-23 14:34 | XMS_ITS | Clinical Summary ---
Author Organization [employer] Address [address] [facility] 7[address] [place] [address] Care Team Providers Care Steel Floor Pan Placing Supervisor Name Role Phone Unavailable Primary Care Provider Unavailabl e Allergies No known active allergies Medications * This document contains information received from the source organization and may not represent a complete record from that organization. sertraline (Zoloft) 50 MG tabletIndicati ons:Generalize d anxiety disorder Take 1 tablet (50 mg) by mouth in the morning. 30 tablet 3 5 Active mirtazapine (Remeron) 15 MG tablet TAKE 1 TABLET BY MOUTH AT BEDTIME 30 tablet 5 Active mirtazapine (Remeron) 15 MG tablet Take 1 tablet (15 mg) by mouth at bedtime. 30 tablet 5 01/03/20 25 Discontinued Active Problems Problem Noted Date Diagnosed Date Breast lump in upper outer quadrant 12/05/2024 Assessment & Plan (12/05/2024 4:22 PM EDT): No history of breast biopsy, will order diagnostic mammogram with option of right breast ultrasound, may need breast biopsy. Follow-up with me as scheduled for SPEECH LANGUAGE PATHOLOGY ASSISTANT intake Mild intermittent asthma without complication Assessment & Plan (12/05/2024 4:23 PM EDT): Controlled, use albuterol as needed Advised to quit THC smoking Sleep disorder 11/09/2024 Generalized anxiety disorder 09/07/2024 Assessment & Plan (12/05/2024 4:23 PM EDT): Doing better on medications but still with significant anxiety, smokes THC. Increase sertraline to 50 mg, she will use them in the p.m. due to mild sedation with 25 mg. DC trazodone due to side effects, start mirtazapine 15 mg nightly as needed insomnia. Advised to follow-up closely with counseling and await for psych prescriber Patient feels safe at home and is able to reach out for safety, follow-up with me in 6 to 8 weeks Assessment & Plan (10/17/2024 9:33 AM EDT): During IB Consult Lucia presenting with excessive worry/anxiety, difficulty controlling worry, anxiety/worry associated to restlessness and/or feeling keyed-up/On edge , easily fatigued , difficulty concentrating and/or mind going blank , irritability, muscle tension , and sleep disturbance difficulty falling asleep and difficulty staying asleep , Fear , and sense of dread ; for a period of 18+ mo, for most or all symptoms in the context of unable to identify significant stressors. Lucia reported she continues to experience anxiety 4 days out of 7 during a week. Intensity of her anxiety remains high. She has been practicing coping strategies discussed during last session- pt states sxs decrease when doing coping skills-. Pt reports having positive support at home. Self- care routine includes baking and cooking. Family hx of schizophrenia. Pt has an upcoming appt with [facility] provider, Trevon Zapata, on 11/07 and first time appt with PCP on 01/25. Pt is connected with [facility] for therapy and has second therapy session scheduled. clinician provided her information if pt needs to reach out for additional support. Assessment & Plan (09/11/2024 10:17 AM EDT): During IB Consult Lucia presenting with excessive worry/anxiety, difficulty [...] for primary care. She was self-referred to [facility] for sooner OP appointments. Pt will be referred for medication management with [facility] provider, Trevon Zapata. Encounters * This document contains information received from the source organization and may not represent a complete record from that organization. Date Type Department Care Team Description 01/17/2025 Patient Outreach [facility] [address] [place] [id number] Keyla Qiu MD Pre-visit Planning (SDOH screening negative and tobacco screening positive) 12/31/2024 Refill [facility] [address] [place] [address] [phone] Keyla Qiu MD 12/14/2024 Telephone [facility] [address] [place] [address] [phone] Keyla Qiu MD 12/05/2024 3:30 PM EDT Office Visit [facility] [address] [place] [address] [phone] Keyla Qiu MD Generalized anxiety disorder (Primary Dx); Breast lump in upper outer quadrant; Mild intermittent asthma without complication 12/05/2024 Travel from Last 3 Months Social History Tobacco Use Types Packs/Day Years Used Date Smoking Tobacco: Former Cigarettes Tobacco Cessation:Counseling Given: Not Answered Housing Stability Answer Date Recorded What is your housing situation today? I have lilian mendoza 01/17/[address] you li ve. Do you have problems with any of the following? None of the above 01/17/2025 Food Insecurity Answer Date Recorded Within the past 12 months, y ou worried that your food would run out before you got money to buy more: Never True 01/17/2025 Within the past 12 months,th e food you bought just didn't last and you didn't have enough money to get more: Never True Transportation Answer Date Recorded In the past 12 months, has l ack of transportation kept you from medical appts, meetings, work or from getting things needed for daily living? No 01/17/2025 Utilities Answer Date Recorded In the past 12 months, has t he electric, gas, oil or water company threatened to shut off services in your home? No 01/17/2025 Internet Access Answer Date Recorded Internet Access Q1 Yes 01/17/2025 Internet Access Q2 Not on file 01/17/2025 Comments Unknown Sex and Gender Information Value Date Recorded Sex Assigned at Female 04/20/2022 10:33 AM EDT Legal Sex Female 10:33 AM EDT Gender Identity Choose not to disclose 10:33 AM EDT Sexual Orientation Choose not to disclose 2021 10:33 AM EDT Last Filed Vital Signs Vital Sign Reading Time Taken Comments Blood Pressure 120/74 12/05/2024 3:28 PM EDT Pulse 72 12/05/2024 3:28 PM EDT Temperature 36.8 C (98.2 F) 12/05/2024 3:28 PM EDT Respiratory Rate 20 12/05/2024 3:28 PM EDT Oxygen Saturation - - Inhaled Oxygen Concentration - - Weight 87.1 kg (192 lb 2 oz) 12/05/2024 3:28 PM EDT Height - - Body Mass Index - - Plan of Treatment Upcoming Encounters Date Type Department Care Team (Late st Contact Info) Description 01/25/2025 3:00 PM EDT Office Visit [facility] [address] [place] [address] Keyla Qiu MD [address] [place] [address] Health Maintenance Due Date Last Done Comments CT Colonography 1977 Colonoscopy 1977 Colorectal Cancer Screening 1977 Depression Screening 1977 FIT DNA/Cologuard 1977 FIT 1977 FOBT 1977 HIV Screening 1977 Lipid Panel 1977 Sigmoidoscopy 1977 Disability Screening 1977 Alcohol/Substance Use Screening 1989 Family Planning (PISQ) 1992 Hepatitis C Screening 11/12/1995 DTaP/Tdap/Td Vaccines (1 - Tdap) 1996 Hepatitis B Vaccines (1 of 3 - 19+ 3-dose series) 1996 Pneumococcal Vaccine: Pediatrics (0 to 5 Years) and At-Risk Patients (6 to 49) Years (1 of 2 - PCV) 1996 Pap Smear 1998 Cervical Cancer Screening 11/12/2007 HPV/Cotest 11/12/2007 Mammogram 2017 Dental Oral Exam 10/21/2021 04/22/2021, 12/08/2018, 09/23/2017 Dental Prophylaxis 10/21/2021 04/22/2021, 09/24/2017 Dental X-Ray: Bitewings 04/23/2022 04/22/20 21, 12/08/2018, 09/23/2017 COVID-19 Vaccine (3 - 2023-2 5 season) 2024 01/20/2021, 12/30/2020 Dental X-Ray: Full Mouth 04/23/2024 021, 09/23/2017 Influenza Vaccine (#1) 2025 Tobacco Screening 12/05/2025 12/05/2024 SDOH Screening 01/17/2026 01/17/2025 Zoster Vaccines (1 of 2) 11/12/2027 RSV [...] Most Recently Relevant to Health Maintenance Insurance [facility] [address] [place] [id number] [facility] MED[place]ID [place] [address] [address] [place] [address]
== END 2025-01-23 13:53 | disposition home or self-care (01) ==
LOC: HO.MAMMO 13:52
PROVIDERS: Visit Provider Internal Medicine
DX: Z13.89 Encounter for screening for other disorder (principal)

== ENCOUNTER 2025-02-07 10:09 | Outpatient (REF) | payer MEDICAID, SELFPAY ==
--- OUTSIDE RECORDS SUMMARY | 2025-02-07 11:17 | XMS_ITS | Clinical Summary ---
Author Organization [facility] Address [address] [place] [address] Care Team Providers Care Protohistorian Name Role Phone Tracy Martin MD Primary Care Provider +1- [phone] Surgical History Surgery Date Site/Laterality Comments SECTION N/A PROCEDURE: [place] DELIVERY ONLY; COMMENT: x3 OTHER SURGICAL HISTORY N/A PROCEDURE: [place] TOT ABD HYST W/PARAORTIC & PELVIC LYMPH [...] age to complete this topic Care Teams Protohistorian Relationship Specialty Start Date End Date Tracy Martin MD PCP - General Internal Medicine 01/08/20
[2025-02-07 12:24] LABS: MANUAL DIFF FLAG NO
[2025-02-07 12:28] LABS: Hematocrit 45.4 % (37.0-47.0); Hemoglobin 14.4 g/dl (12.0-16.0); Imm Gran Abs Auto 0.07 X10*3/uL (0.00-0.03); Imm Gran Pct Auto 0.7 % (0.0-0.4); Lymphocytes Absolute Auto 2.3 X10*3/uL (1.2-4.9); Mean Corpuscular HGB Conc 31.7 g/dl (31.0-35.0); Mean Corpuscular Hemoglobin 26.0 pg (27.0-33.0); Mean Corpuscular Volume 82.1 fL (80.0-98.0); NRBC Abs Auto 0.000 X10*3/uL (0.0-0.012); NRBC Pct Auto 0.0 /100WBC (0.0-0.2); Platelet Count 392 X10*3/uL (160-400); Red Blood Count 5.53 X10*6/uL (4.20-5.50); White Blood Count 10.2 X10*3/uL (4.8-10.8)
[2025-02-07 13:08] LABS: Alanine Aminotransferase 34 U/L (0-31); Albumin Level 4.1 g/dL (3.5-5.0); Alkaline Phosphatase 83 U/L (39-117); Anion Gap 12 (12-20); Aspartate Amino Transferase 33 U/L (5-31); Blood Urea Nitrogen 13 mg/dL (9-16); Calcium 9.0 mg/dL (8.4-10.2); Carbon Dioxide 25 mmol/L (22-29); Chloride 107 mmol/L (96-108); Estimated Glomerular Filt Rate > 60; Potassium 4.3 mmol/L (3.3-5.1); Sodium 140 mmol/L (135-145); Total Protein 7.0 g/dL (6.5-8.0)
== END 2025-02-07 10:10 | disposition home or self-care (01) ==
LOC: HO.HHCL 10:09
PROVIDERS: PCP Internal Medicine; Visit Provider Internal Medicine
DX: F41.1 Generalized anxiety disorder (principal); G56.03 Carpal tunnel syndrome, bilateral upper limbs
CPT/HCPCS: 36415; 80053; 82306; 84443; 85025

== ENCOUNTER 2025-06-19 13:16 | Outpatient (REF) | payer MEDICAID, SELFPAY ==
--- NOTE | ~2025-06-19 | US_ITS ---
EXAMINATION: MM DIAGNOSTIC DIGITAL BREAST TOMOSYNTHESIS, BILATERAL Limited right breast ultrasound. CLINICAL INFORMATION: Right breast palpable lump upper outer quadrant. Patient has a family history of breast cancer including mother. COMPARISON: Mammography: Comparison is made with relevant prior exams. TECHNIQUE: Digital breast mammography with tomosynthesis is performed in both the craniocaudal and mediolateral oblique views along with computer-aided detection (CAD). FINDINGS: There are scattered areas of fibroglandular density. Right: BB marker in the upper outer breast at site of patient's palpable lump with underlying dense breast tissue. No suspicious calcifications or other abnormal findings. Targeted color Doppler ultrasound scanning in the area the patient's palpable lump upper outer quadrant demonstrates an incidental probable complicated cyst at 9:00 8 cm from nipple measuring 7 x 6 x 9 mm. Left: There are no significant masses, abnormal calcifications, or other abnormalities. Results are provided to the patient at time of visit by the technologist. US/US Breast RT Limited Mamm Only IMPRESSION: Right: 1. Dense tissue at site of patient's palpable lump with an incidental probable complicated cyst at 9:00 8 cm from nipple. Recommend 6 month follow-up mammogram and ultrasound for further evaluation of stability. 2. Patient has dense breast tissue and palpable lump with a family history of breast cancer including patient's mother. Recommend breast MRI with contrast for further evaluation of stability. Left: Negative. Patient has a strong family history of breast cancer including patient's mother and dense breast tissue recommend breast MRI with contrast for further evaluation. Breast MRI needs to be ordered by the patient's providing clinician. ASSESSMENT: BI-RADS Category 3: Probably benign RECOMMENDATION: 6 Month F/U Patient has a strong family history of breast cancer including patient's mother and dense breast tissue recommend breast MRI with contrast for further evaluation. Breast MRI needs to be ordered by the patient's providing clinician. This patient's information was entered into a reminder system with a target due date for their next mammogram. Electronically signed by: Kimi Katz DO 06/19/2025 02:39 PM JONNY
--- OUTSIDE RECORDS SUMMARY | 2025-06-19 17:08 | XMS_ITS | Data Portability ---
Author Organization [facility], [address] Address [address] [place] [address] Assessment No assessment recorded. Plan of Treatment Reminders Order Date Submit Date Provider Last Modified By Organization Details Last Modified Time Details Appointments None recorded. Lab None recorded. Referral orthopedic surgeon referral - Had surgery to right thumb and unable to flex it at DIP joint. need further evaluation and treatment. [address] [facility], [address], [place], [address], 3 17:39:21 Procedures None recorded. Surgeries None recorded. Imaging XR, finger(s), 2 or more view 2022 023 [facility], [address] [place] [address], [address], 3 17:59:24 Medication Orders None recorded. Patient TargetsNo targets recorded. Patient Instructions Encounter Date Encounter Id Patient Instructions Last Modified By Organization Details Last Modified Time 10/26/2022 [id number] Thumb pain is a common complaint. The functional anatomy and examination of the thumb are described in the text. The history should focus on the mechanism of injury, while the examination should include assessment of all thumb movements and joint stability. Plain radiography's, including anteroposterior or posteroanterior, lateral, and oblique views, are the initial studies obtained to assess thumb injuries. Ultrasound can be useful for dynamic assessment of ligament injuries or imaging of other soft tissue pathology. Computed tomography may be needed to evaluate complex fractures. Thumb trauma often results in soft tissue injury. A simple laceration can be repaired once an examination is completed. Major skin and soft tissue wounds that extend to a fractured bone, lacerated tendons, or an open tendon sheath or joint capsule must be managed immediately, including referral to a hand surgeon. Obvious deformity of the thumb following trauma raises concern for fracture or dislocation. Fractures of either phalanx and dislocations of the metacarpophalangeal joint are most common. Joint instability following thumb trauma suggests a ligamentous injury. Tears of the ulnar collateral ligament and mallet thumb are most common. Nontraumatic thumb pain usually represents a chronic or hyvql-rk-dhlibiq condition. Diagnoses to consider include stenosing flexor tenosynovitis (Trigger thumb), de Quervain s tenosynovitis, arthritis, and carpal tunnel syndrome. [...] Abnormal Flag Note LastModifiedBy Organization Detail LastModifiedTime 10/27/1910/26/2022 XR, finge r(s), 2 or more view No observ ation record ed. [email or web address] [facility] [address] [facility], [place], [address], 10/27/2022 19:54:32 Result Notes None recorded. Problems Name Problem SNOMED Code Status Onset Date Resolution Date Notes Provider Name and Address Organization Details Recorded Time Anxiety [id number] Active [facility] 10/26/2022 16:58:56 Problem Notes None recorded. Medical Equipment None Reported. [...] mass index (BMI) Body weight Oxygen saturation Pain severity - 0-10 verbal numeric rating [Score] - Reported Heart rate Respiratory rate Body temperature Systolic And Diastolic Provider Name and Address Organization Details Last Updated DateTime 3 154.94 cm 41.4 kg/m2 95021.7 3 g 100 % 10 69 /min 18 /min 97.9 [degF] 144/89 mm[Hg] Duglas PARKER - [facility] 3 16:58:14 Social History None recorded. Functional Status Question Answer Note LastModified by Organizat ion Details LastModified Time Do you use any illicit or recreational drugs? No Information not available 10/26/2022 Do you or have you ever used any other forms of tobacco or nicotine? No Information not available 10/26/2022 Mental Status None recorded. Family History Relationship Description Onset Age of this Age Resolved Age Notes LastModified by Organization Details LastModified Time Father No current problems or disability Not available 10/26 16:58:58 Mother No current problems or disability [email or web address] Not available 10/26 16:58:58 Medical History No medical history recorded. Gynecological HistoryNo gynecological history recorded. Obstetrics History GPAL:G 0 P 0 0 0 0 Immunizations Vaccine Type Date Status Note Provider Nam e and Address Organization Details Recorded Time COVID-19, mRNA, LNP-S, PF, 30 mcg/0.3 mL dose 12/30/2020 completed Duglas bernstein PA - [facility] 10/26/2022 16:58:39 COVID-19, mRNA, LNP-S, PF, 30 mcg/0.3 mL dose 01/20/2021 completed Duglas bernstein PA - [facility] 10/26/2022 16:58:39 Past Encounters Encounter ID Performer Location Encounter Start Date Encounter Closed Date Diagnosis/Indication Diagnosis SNOMED-CT Code Diagnosis ICD10 Code Diagnosis IMO Codes Diagnosis [place] [id number] [place] [address] [facility] [address] [place] [address] 10/26/2022 16:15:56 10/26/2022 17:39:21 Sprain of ligament of right thumb [id number] S63.601A Health Concerns Section Related Observation LastModified by Organization Detai ls LastModified Time None Recorded Concern Status LastModified by Organization Details LastModified Time None Recorded Advance Directives Directive None Recorded Payers Insurance Date Sequence Insurance Name Policy Number Policy Amezcua Covered Member ID Amezcua Member ID Guarantor Name 10/26/2022 1 [facility]MEDICAID HMO) [id number] Lucia Corona [id number] Lucia Corona 10/26/2022 1 [facility] - [facility] (HMO) [id number] Lucia Cortezivonne Corona [id number] Lucia Corona Notes Date Note Type Note Provider Name and Address Organization Details Recorded Time 3 text/html Wrist / Hand InjuryReported by PatientHPIFor previous injury, patient reportsprior injury to right hand. For source of patient information, patient reportspatient arrived at urgent care ambulatory. For location, patient reportsrightandhand. For associated symptoms, patient reportsno redness,no ecchymosis, andno fever. For severity, patient reportsmild. For duration, patient reports5 months. For context, patient reportsatraumatic. For hand dominance, patient reportsright. For aggravating factors, patient reportsgrippingandrom. For previous treatment, patient reportssurgical procedure:. For prior imaging, patient reportsx ray. Ashu Dong NP [address] [place], [address], [place] - [facility] 10/26/2022 17:35:53 OBGyn Episode No OBEpisode recorded.
--- OUTSIDE RECORDS SUMMARY | 2025-06-19 17:08 | XMS_ITS | Clinical Summary ---
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 mirtazapine (Remeron) 15 MG tablet TAKE 1 TABLET BY MOUTH EVERYDAY AT BEDTIME 90 tablet 1 01/29/2025 Active sertraline (Zoloft) 50 MG tabletIndicatio ns:Generalized anxiety disorder TAKE 1 TABLET BY MOUTH EVERY DAY IN THE MORNING 90 tablet 1 03/07/2025 Active fluticasone (Flonase) 50 MCG/ACT nasal spray SPRAY 1 SPRAY INTO EACH NOSTRIL EVERY DAY 48 mL 04/30/2025 Active Active Problems Problem Noted Date Diagnosed Date Postnasal drip 01/25/2025 Assessment & Plan (01/25/2025 4:48 PM EDT): Advised to quit smoking (THC), start using Flonase daily x 1 month return to clinic as needed Bilateral carpal tunnel syndrome 01/25/2025 Assessment & Plan (01/25/2025 4:52 PM EDT): Recurrent after surgery, advised to use hand braces I gave her information about acupuncture, take Tylenol as needed and refer to OT Breast lump in upper outer quadrant 12/05/2024 Assessment & Plan (01/25/2025 4:49 PM EDT): Mammogram was order, appointment is pending Advised patient to bring hardcopy of previous mammograms Assessment & Plan (12/05/2024 4:22 PM EDT): No history of breast biopsy, will order diagnostic mammogram with option of right breast ultrasound, may need breast biopsy. Follow-up with me as scheduled for [facility] intake Mild intermittent asthma without complication Assessment & Plan (12/05/2024 4:23 PM EDT): Controlled, use albuterol as needed Advised to quit THC smoking Generalized anxiety disorder 09/07/2024 Overview (01/25/2025): Seen at [facility] (Psychiatry [address] [place] [address], [address], [facility] [address] Assessment & Plan (01/25/2025 4:51 PM EDT): Seems to be doing better on sertraline and mirtazapine. Follow-up with psychiatry at [facility], with [place] She feels safe at home and is able to reach out for safety, she will follow-up closely with psychotherapist every 2 weeks Patient has crisis number Will follow-up every 6 months or earlier as needed Assessment & Plan (12/05/2024 4:23 PM EDT): [...] & Plan (10/17/2024 9:33 AM EDT): During IBH Consult Lucia presenting [...] schizophrenia. Pt has an upcoming appt with [facility] provider, Trevon Zapata, on 11/07 and first time appt with PCP on 01/25. Pt is connected with [facility] / [facility] for therapy and has second therapy session [...] care. She was self-referred to [facility] / [facility] for sooner OP appointments. Pt will be referred for medication management with [facility] provider, Trevon Zapata. Resolved Problems Problem Noted Date Diagnosed Date Resolved Date Sleep disorder 11/09/2024 01/25/2025 Encounters Date Type Department Care Team Description 06/19/2025 Orders Only [facility] MEDICINE [address] [place] [address] Keyla Qiu MD 06/04/2025 2:00 PM EST Office Visit [facility] OPTOMETRY [address] [place] [address] Agusto, Maribel, OD Anatomical narrow angle (Primary Dx); Regular astigmatism of left eye 06/04/2025 Travel 05/04/2025 Telephone [facility] MEDICINE [address] [place] [address] Keyla Qiu MD recall 04/29/2025 Refill [facility] MEDICINE [address] [place], [place] [id number] Keyla Qiu MD from Last 3 Months Social History Tobacco Use Types Packs/Day Years Used Date Smoking Tobacco: Former Cigarettes Tobacco Cessation:Counseling Given: Not Answered Alcohol Use Standard Drinks/Week Comments Never 0 (1 standard drink = 0.6 oz pur e alcohol) Depression Answer Date Recorded Patient Health Questionnaire-9 Score 4 01/25/2025 Patient Health Questionnaire-9 Score 4 01/25/2025 Last PHQ-9: Questionnaire Data Not on file 0 01/25/2025 Housing Stability Answer Date Recorded What is [...] off services in your home? No 01/17/2025 Depression Answer Date Recorded Patient Health Questionnaire-2 Score 0 01/25/2025 Internet Access Answer Date Recorded Internet Access Q1 Yes 01/17/2025 Internet Access Q2 Not on file 01/17/2025 Comments No Sex and Gender Information Value Date Recorded Sex Assigned at Female 04/20/2022 10:33 AM EDT Legal Sex Female 10:33 AM EDT Gender Identity Choose not to disclose 10:33 AM EDT Sexual Orientation Choose not to disclose 2021 10:33 AM EDT Last Filed Vital Signs Vital Sign Reading Time Taken Comments Blood Pressure 124/70 01/25/2025 2:47 PM EDT Pulse 68 01/25/2025 2:47 PM EDT Temperature 37.1 C (98.7 F) 01/25/2025 2:47 PM EDT Respiratory Rate 21 01/25/2025 2:47 PM EDT Oxygen Saturation 100% 01/25/2025 2:47 PM EDT Inhaled Oxygen Concentration - - Weight 86.2 kg (190 lb) 01/25/2025 2:47 PM EDT Height 157.5 cm (5' 2 ) 01/25/2025 2:47 PM EDT Body Mass Index 34.75 01/25/2025 2:47 PM EDT Plan of Treatment Upcoming Encounters Date Type Department Care Team (Late st Contact Info) Description 07/18/2025 9:15 AM EST Office Visit [facility] MEDICINE [address] [place] [address] Keyla Qiu MD [address] [place] [address] Health Maintenance Due Date Last Done Comments CT Colonography 1977 Colonoscopy 1977 Colorectal Cancer Screening 1977 FIT DNA/Cologuard 1977 FIT 1977 FOBT 1977 HIV Screening 1977 Lipid Panel 1977 Sigmoidoscopy 1977 Family Planning (PISQ) 1992 Hepatitis C Screening 11/12/1995 DTaP/Tdap/Td Vaccines (1 - Tdap) 1996 Hepatitis B Vaccines (1 of 3 - 19+ 3-dose series) 1996 Pneumococcal Vaccine: Pediatrics (0 to 5 Years) and At-Risk Patients (6 to 49) Years (1 of 2 - PCV) 1996 Mammogram 2017 06/19/2025, 06/19/2025 Dental Oral Exam 10/21/2021 04/22/2021, 12/08/2018, 09/23/2017 Dental Prophylaxis 10/21/2021 04/22/2021, 09/24/2017 Dental X-Ray: Bitewings 04/23/2022 04/22/20 21, 12/08/2018, 09/23/2017 COVID-19 Vaccine (3 - 2024-2 6 season) 2025 01/20/2021, 12/30/2020 Influenza Vaccine (#1) 2025 SDOH Screening 01/17/2026 01/17/2025 Alcohol/Substance Use Screening 01/25/2026 01/25/2025 Depression Screening 01/25/2026 01/25/2025, 01/25/2025 Disability Screening 01/25/2026 01/25/2025 Tobacco Screening 01/25/2026 01/25/2025 Dental X-Ray: Full Mouth 10/07/2027 025, 04/22/2021, 09/23/2017 Zoster Vaccines (1 of 2) 11/12/2027 RSV [...] Procedure Name Priority Date/Time Associated Diagnosis Comments BI US BREAST LIMITED RIGHT Routine 06/19/2025 2:15 PM EST BI MAMMOGRAM DIAGNOSTIC TOMOSYNTHESIS BILATERAL Routine 06/19/2025 1:50 PM EST PROPHYLAXIS - ADULT Routine 04/22/2021 1 2:00 AM EDT INTRAORAL - COMPLETE SERIES OF RADIOGRAPHIC IMAGES Routine 04/22/2021 12:00 AM EDT PERIODIC ORAL EVALUATION - ESTABLISHED PATIENT Routine 04/22/2021 12:00 AM EDT from Last 3 Months or Most Recently Relevant to Health Maintenance Results * BI US Breast Limited Right (06/19/2025 2:15 PM EST) Anatomical Region Laterality Modality Breast Right Ultrasound 06/19/2025 2:15 PM EST Narrative 06/19/2025 2:42 PM EST [facility] [address] [place], [place] [address] Ultrasound Report Signed Patient: Lucia Degroot MR#: [id number] : 1975 Acct:[id number] Age/Sex: 49 / F ADM Date: 06/19/25 Loc: [facility] Attending Dr: Keyla Qiu MD Ordering Physician: Keyla Qiu MD Date of Service: 06/19/25 Procedure(s): US Breast RT Limited Mamm Only Accession Number(s): [id number] cc: Keyla Qiu MD Reason for Exam: RT BR LUMP UOQ EXAMINATION: MM DIAGNOSTIC DIGITAL BREAST TOMOSYNTHESIS, BILATERAL Limited right breast ultrasound. CLINICAL INFORMATION: Right breast palpable lump upper outer quadrant. Patient has a family history of breast cancer including mother. COMPARISON: Mammography: Comparison is made with relevant prior exams. TECHNIQUE: Digital breast mammography with tomosynthesis is performed in both the craniocaudal and mediolateral oblique views along with computer-aided detection (CAD). FINDINGS: There are scattered areas of fibroglandular density. Right: BB marker in the upper outer breast at site of patient's palpable lump with underlying dense breast tissue. No suspicious calcifications or other abnormal findings. Targeted color Doppler ultrasound scanning in the area the patient's palpable lump upper outer quadrant demonstrates an incidental probable complicated cyst at 9:00 8 cm from nipple measuring 7 x 6 x 9 mm. Left: There are no significant masses, abnormal calcifications, or other abnormalities. Results are provided to the patient at time of visit by the technologist. US/US Breast RT Limited Mamm Only IMPRESSION: Right: 1. Dense tissue at site of patient's palpable lump with an incidental probable complicated cyst at 9:00 8 cm from nipple. Recommend 6 month follow-up mammogram and ultrasound for further evaluation of stability. 2. Patient has dense breast tissue and palpable lump with a family history of breast cancer including patient's mother. Recommend breast MRI with contrast for further evaluation of stability. Left: Negative. Patient has a strong family history of breast cancer including patient's mother and dense breast tissue recommend breast MRI with contrast for further evaluation. Breast MRI needs to be ordered by the patient's providing clinician. ASSESSMENT: BI-RADS Category 3: Probably benign RECOMMENDATION: 6 Month F/U Patient has a strong family history of breast cancer including patient's mother and dense breast tissue recommend breast MRI with contrast for further evaluation. Breast MRI needs to be ordered by the patient's providing clinician. This patient's information was entered into a reminder system with a target due date for their next mammogram. Electronically signed by: Kimi Katz DO 06/19/2025 02:39 PM [facility] Dictated By: Kimi Katz DO Signed By: <Electronically signed by Kimi Katz DO in OV> 06/19/25 1439 DD/ 1415 TD/TT: 06/19/25 1421 Continuous Towel Roller: Procedure Note Donotuseinterpreter, Image - 06/19/2025 [facility] [address] [place] [address] Ultrasound Report Signed Patient: Lucia Degroot#: [id number] : 1975Acct:[id number] Age/Sex: 49 / FADM Date: 06/19/25 Loc: HO.MAMMO Attending Dr: Keyla Qiu MD Ordering Physician: Keyla Qiu MD Date of Service: 06/19/25 Procedure(s): US Breast RT Limited Mamm Only Accession Number(s): [id number] cc: Keyla Qiu MD Reason for Exam: RT BR LUMP UOQ EXAMINATION: MM DIAGNOSTIC DIGITAL BREAST TOMOSYNTHESIS, BILATERAL Limited right breast ultrasound. CLINICAL INFORMATION: Right breast palpable lump upper outer quadrant. Patient has a family history of breast cancer including mother. COMPARISON: Mammography: Comparison is made with relevant prior exams. TECHNIQUE: Digital breast mammography with tomosynthesis is performed in both the craniocaudal and mediolateral oblique views along with computer-aided detection (CAD). FINDINGS: There are scattered areas of fibroglandular density. Right: BB marker in the upper outer breast at site of patient's palpable lump with underlying dense breast tissue. No suspicious calcifications or other abnormal findings. Targeted color Doppler ultrasound scanning in the area the patient's palpable lump upper outer quadrant demonstrates an incidental probable complicated cyst at 9:00 8 cm from nipple measuring 7 x 6 x 9 mm. Left: There are no significant masses, abnormal calcifications, or other abnormalities. Results are provided to the patient at time of visit by the technologist. US/US Breast RT Limited Mamm Only IMPRESSION: Right: 1. Dense tissue at site of patient's palpable lump with an incidental probable complicated cyst at 9:00 8 cm from nipple. Recommend 6 month follow-up mammogram and ultrasound for further evaluation of stability. 2. Patient has dense breast tissue and palpable lump with a family history of breast cancer including patient's mother. Recommend breast MRI with contrast for further evaluation of stability. Left: Negative. Patient has a strong family history of breast cancer including patient's mother and dense breast tissue recommend breast MRI with contrast for further evaluation. Breast MRI needs to be ordered by the patient's providing clinician. ASSESSMENT: BI-RADS Category 3: Probably benign RECOMMENDATION: 6 Month F/U Patient has a strong family history of breast cancer including patient's mother and dense breast tissue recommend breast MRI with contrast for further evaluation. Breast MRI needs to be ordered by the patient's providing clinician. This patient's information was entered into a reminder system with a target due date for their next mammogram. Electronically signed by: Kimi Katz DO 06/19/2025 02:39 PM EST Dictated By: Kimi Katz DO Signed By: <Electronically signed by Kimi Katz DO in OV> 06/19/25 1439 DD/ 1415 TD/TT: 06/19/25 1421 Continuous Towel Roller: us Keyla Qiu MD IMG US PROCEDURES Final Result * BI Mammogram Diagnostic Tomosynthesis Bilateral (06/19/2025 1:50 PM EST) Anatomical Region Laterality Modality Breast Bilateral Mammography 06/19/2025 1:50 PM EST Narrative 06/19/2025 2:42 PM EST [address] [place] [address] Mammography Report Signed Patient: Lucia Degroot MR#: [id number] : 1975 Acct:[id number] Age/Sex: 49 / F ADM Date: 06/19/25 Loc: HO.MAMMO Attending Dr: Keyla Qiu MD Ordering Physician: Keyla Qiu MD Results: 3Pr obably Benign Date of Service: 06/19/25 Follow Up: 6 Month F/U Procedure(s): MM tomosynthesis diagnostic BI Accession Number(s): [id number] cc: Keyla Qiu MD Reason For Exam: RT BR LUMP UOQ EXAMINATION: MM DIAGNOSTIC DIGITAL BREAST TOMOSYNTHESIS, BILATERAL Limited right breast ultrasound. CLINICAL INFORMATION: Right breast palpable lump upper outer quadrant. Patient has a family history of breast cancer including mother. COMPARISON: Mammography: Comparison is made with relevant prior exams. TECHNIQUE: Digital breast mammography with tomosynthesis is performed in both the craniocaudal and mediolateral oblique views along with computer-aided detection (CAD). FINDINGS: There are scattered areas of fibroglandular density. Right: BB marker in the upper outer breast at site of patient's palpable lump with underlying dense breast tissue. No suspicious calcifications or other abnormal findings. Targeted color Doppler ultrasound scanning in the area the patient's palpable lump upper outer quadrant demonstrates an incidental probable complicated cyst at 9:00 8 cm from nipple measuring 7 x 6 x 9 mm. Left: There are no significant masses, abnormal calcifications, or other abnormalities. Results are provided to the patient at time of visit by the technologist. MM/MM tomosynthesis diagnostic BI IMPRESSION: Right: 1. Dense tissue at site of patient's palpable lump with an incidental probable complicated cyst at 9:00 8 cm from nipple. Recommend 6 month follow-up mammogram and ultrasound for further evaluation of stability. 2. Patient has dense breast tissue and palpable lump with a family history of breast cancer including patient's mother. Recommend breast MRI with contrast for further evaluation of stability. Left: Negative. Patient has a strong family history of breast cancer including patient's mother and dense breast tissue recommend breast MRI with contrast for further evaluation. Breast MRI needs to be ordered by the patient's providing clinician. ASSESSMENT: BI-RADS Category 3: Probably benign RECOMMENDATION: 6 Month F/U Patient has a strong family history of breast cancer including patient's mother and dense breast tissue recommend breast MRI with contrast for further evaluation. Breast MRI needs to be ordered by the patient's providing clinician. This patient's information was entered into a reminder system with a target due date for their next mammogram. Electronically signed by: Kimi Katz DO 06/19/2025 02:39 PM [facility] Dictated By: Kimi Katz DO Signed By: <Electronically signed by Kimi Katz DO in OV> 06/19/25 1439 DD/ 1350 TD/TT: 06/19/25 1414 Continuous Towel Roller: Procedure Note Donotuseinterpreter, Image - 06/19/2025 [facility] [address] [place] [address] Mammography Report Signed Patient: Lucia Degroot#: [id number] : 1975Acct:[id number] Age/Sex: 49 / FADM Date: 06/19/25 Loc: [facility] Attending Dr: Keyla Qiu MD Ordering Physician: Keyla Qiuesults: 3Pr obably Benign Date of Service: 06/19/25Follow Up: 6 Month F/U Procedure(s): MM tomosynthesis diagnostic BI Accession Number(s): [id number] cc: Keyla Qiu MD Reason For Exam: RT BR LUMP UOQ EXAMINATION: MM DIAGNOSTIC DIGITAL BREAST TOMOSYNTHESIS, BILATERAL Limited right breast ultrasound. CLINICAL INFORMATION: Right breast palpable lump upper outer quadrant. Patient has a family history of breast cancer including mother. COMPARISON: Mammography: Comparison is made with relevant prior exams. TECHNIQUE: Digital breast mammography with tomosynthesis is performed in both the craniocaudal and mediolateral oblique views along with computer-aided detection (CAD). FINDINGS: There are scattered areas of fibroglandular density. Right: BB marker in the upper outer breast at site of patient's palpable lump with underlying dense breast tissue. No suspicious calcifications or other abnormal findings. Targeted color Doppler ultrasound scanning in the area the patient's palpable lump upper outer quadrant demonstrates an incidental probable complicated cyst at 9:00 8 cm from nipple measuring 7 x 6 x 9 mm. Left: There are no significant masses, abnormal calcifications, or other abnormalities. Results are provided to the patient at time of visit by the technologist. MM/MM tomosynthesis diagnostic BI IMPRESSION: Right: 1. Dense tissue at site of patient's palpable lump with an incidental probable complicated cyst at 9:00 8 cm from nipple. Recommend 6 month follow-up mammogram and ultrasound for further evaluation of stability. 2. Patient has dense breast tissue and palpable lump with a family history of breast cancer including patient's mother. Recommend breast MRI with contrast for further evaluation of stability. Left: Negative. Patient has a strong family history of breast cancer including patient's mother and dense breast tissue recommend breast MRI with contrast for further evaluation. Breast MRI needs to be ordered by the patient's providing clinician. ASSESSMENT: BI-RADS Category 3: Probably benign RECOMMENDATION: 6 Month F/U Patient has a strong family history of breast cancer including patient's mother and dense breast tissue recommend breast MRI with contrast for further evaluation. Breast MRI needs to be ordered by the patient's providing clinician. This patient's information was entered into a reminder system with a target due date for their next mammogram. 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
--- OUTSIDE RECORDS SUMMARY | 2025-06-19 17:09 | XMS_ITS | Clinical Summary ---
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 Name Role Phone Tracy Martin MD Primary Care Provider [phone] Surgical History Surgery Date Site/Laterality Comments SECTION N/A PROCEDURE: [place] DELIVERY ONLY; COMMENT: x3 OTHER SURGICAL HISTORY N/A PROCEDURE: [place] TOT ABD HYST W/PARAORTIC & PELVIC LYMPH [...] on file Sexual Orientation Not on file Plan of Treatment Health Maintenance Due Date Last Done Comments Breast Cancer Screening 1977 DTaP,Tdap,and Td Vaccines (1 - Tdap) 1996 Hepatitis B Vaccines (1 of 3 - 19+ 3-dose series) 1996 Cervical Cancer Screening: P ap Smear 1998 Depression Screening 06/21/2024 COVID-19 Vaccine (1 - 2024-2 6 season) 2025 Influenza Vaccine (#1) 2025 RSV Immunization Adult Patie nts (1 - 1-dose 75+ series) 2052 HIB [...] age to complete this topic Care Teams Fast Food Fry Cook Relationship Specialty Start Date End Date Tracy Martin MD PCP - General Internal Medicine 01/08/20
--- OUTSIDE RECORDS SUMMARY | 2025-06-19 17:09 | XMS_ITS | Encounter Summary ---
Author Organization [employer] Address [address] [place] [address] Care Team Providers Care Mental Health Assistant Name Role Phone Keyla Qiu MD Primary Care Provider + Encounter Details Date Type Department Care Team (Late st Contact Info) Description 06/19/2025 Orders Only [facility] [address] [place], [place] [phone] Keyla Qiu MD [address] [place], [place] [phone] Social History Tobacco Use Types Packs/Day Years Used Date Smoking Tobacco: Former Cigarettes Alcohol Use Standard Drinks/Week Comments Never 0 (1 standard drink = 0.6 oz pur e alcohol) Depression Answer Date Recorded Patient Health Questionnaire-9 Score 4 01/25/2025 Patient Health Questionnaire-9 Score 4 01/25/2025 Last PHQ-9: Questionnaire Data Not on file 0 01/25/2025 Housing Stability Answer Date Recorded What is your housing situation today? I have lilianjordan mendoza 01/17/[address] you [...] t he electric, gas, oil or water [employer] threatened to shut off services in your [...] as of this encounter Plan of Treatment Upcoming Encounters Date Type Department Care Team (Late st Contact Info) Description 07/18/2025 9:15 AM EST Office Visit [facility] [address] [place], [place] [phone] Keyla Qiu MD [address] [place], [place] [phone] documented as of this encounter Procedures Procedure Name Priority Date/Time Associated Diagnosis Comments BI US BREAST LIMITED RIGHT Routine 06/19/2025 2:15 PM EST BI MAMMOGRAM DIAGNOSTIC TOMOSYNTHESIS BILATERAL Routine 06/19/2025 1:50 PM EST documented in this encounter Results * BI US Breast Limited Right (06/19/2025 2:15 PM EST) Anatomical Region Laterality Modality Breast Right Ultrasound 06/19/2025 2:15 PM EST Narrative 06/19/2025 2:42 PM EST [facility] [address] [place] [address] Ultrasound Report Signed Patient: Lucia Degroot MR#: [id number] : 1975 Acct:[id number] Age/Sex: 49 / F ADM Date: 06/19/25 Loc: HO.MAMMO Attending Dr: Keyla Qiu MD Ordering Physician: Keyla Qiu MD Date of Service: 06/19/25 Procedure(s): US Breast RT Limited Mamm Only Accession Number(s): [id number] cc: Keyla Qiu MD Reason for Exam: [...] by: Kimi Katz DO 06/19/2025 02:39 PM [facility] Dictated By: Kimi Katz DO Signed By: <Electronically signed by Kimi Katz DO in OV> 06/19/25 1439 DD/ 1415 TD/TT: 06/19/25 1421 Graduate Rn: Procedure Note Donotuseinterpreter, Image - [facility]/19/20[facility] [address] [place], [place] [address] Ultrasound Report Signed Patient: Lucia DegrootMR#: [id number] : 1975Acct:[id number] Age/Sex: 49 / FADM Date: 06/19/25 Loc: HO.MAMMO Attending Dr: Keyla Qiu MD Ordering Physician: Keyla Qiu MD Date of Service: 06/19/25 Procedure(s): US Breast RT Limited Mamm Only Accession Number(s): [id number] cc: Keyla Qiu MD Reason for Exam: [...] 06/19/25 1439 DD/ 1415 TD/TT: 06/19/25 1421 Graduate Rn: us Keyla Qiu MD IMG US PROCEDURES Final Result * BI Mammogram Diagnostic Tomosynthesis Bilateral (06/19/2025 1:50 PM EST) Anatomical Region Laterality Modality Breast Bilateral Mammography 06/19/2025 1:50 PM EST Narrative 06/19/2025 2:42 PM EST [facility] [address] [place] [address] Mammography Report Signed Patient: Lucia Degroot MR#: [id number] : 1975 Acct:[id number] Age/Sex: 49 / F ADM Date: 06/19/25 Loc: [facility] Attending Dr: Keyla Qiu MD Ordering Physician: Keyla Qiu MD Results: 3Pr obably Benign Date of Service: 06/19/25 Follow Up: 6 Month F/U Procedure(s): MM tomosynthesis diagnostic BI Accession Number(s): [id number] cc: Keyla Qiu MD Reason For Exam: [...] by: Kimi Katz DO 06/19/2025 02:39 PM [facility] Dictated By: Kimi Katz DO Signed By: <Electronically signed by Kimi Katz DO in OV> 06/19/25 1439 DD/ 1350 TD/TT: 06/19/25 1414 Graduate Rn: Procedure Note Donotuseinterpreter, Image - 06/19/2025 [facility] [address] [place], [place] [address] Mammography Report Signed Patient: Lucia DegrootMR#: [id number] : 1975Acct:[id number] Age/Sex: 49 / FADM Date: 06/19/25 Loc: HO.MAMMO Attending Dr: Keyla Qiu MD Ordering Physician: Keyla Qiu MDResults: 3Pr obably Benign Date of Service: 06/19/25Follow Up: 6 Month F/U Procedure(s): MM tomosynthesis diagnostic BI Accession Number(s): [id number] cc: Keyla Qiu MD Reason For Exam: [...] 06/19/25 1439 DD/ 1350 TD/TT: 06/19/25 1414 Graduate Rn: us Keyla Qiu MD IMG BI PROCEDURES Final Result documented in this encounter Visit Diagnoses Not on filedocumented in this encounter Additional Health Concerns Assessment Noted Time PHQ-9 Depression Total Score: 4 01/26/20 3:56 PM EDT documented as of this encounter Care Teams Mental Health Assistant Relationship Specialty Start Date End Date Keyla Qiu MD [address] [place] [phone] PCP - General Internal Medicine 01/25/25 documented as of this encounter
--- OUTSIDE RECORDS SUMMARY | 2025-06-19 17:09 | XMS_ITS | Encounter Summary ---
Author Organization [employer] Address [address] [facility] [address] [place] [address] Care Team Providers Care Maintenance Of Way Superintendent Name Role Phone Maribel Liz OD Primary Care Provider [phone] Keyla Qiu MD Primary Care Provider + Encounter Details Date Type Department Care Team (Latest Contact Info) Description 04/22/2021 Abstract [facility] CONVERSIONS Dental, Provider, DDS Social History Tobacco [...] Description 07/18/2025 9:15 AM EST Office Visit [facility] MEDICINE [address] [place] [phone] Keyla Qiu MD [address] [place] [phone] documented as of this encounter Visit Diagnoses Not on filedocumented in this encounter Care Teams Maintenance Of Way Superintendent Relationship Specialty Start Date End Date Maribel Liz OD [address] [place] [phone] PCP - General Optometry 12/31/17 06/27/23 Keyla Qiu MD [address] [place] [phone] PCP - General Internal Medicine 01/25/25 documented as of this encounter
--- OUTSIDE RECORDS SUMMARY | 2025-06-19 17:09 | XMS_ITS | Data Portability ---
Author Organization [facility], [facility] Address [address] [place] [address] Support Name Relationship Address Phone REGINALD HARTLEY self [address] [place] [address] Assessment Encounter Date Assessment Date Assessment LastModified by Organization Details LastModified Time 11/08/2023 11/08/2023 Assessment: Left carpal tunnel syndrome ready to proceed with left carpal tunnel release. Plan: She understands the option of a cortisone injection for temporary relief of her symptoms versus proceeding with carpal tunnel release surgery. She did well after right carpal tunnel release surgery and prefers to proceed with scheduling for a left carpal tunnel surgery. Surgical consents are obtained today and postoperative recovery questions have been addressed. Surgery to be scheduled with my group leader semiconductor processing. emma Not available 11/08/2023 13:17:08 Plan of Treatment Reminders Order Date Submit Date Provider Name Organization Details Last Modified By Last Modified Time Details Appointments None record ed. Lab None record ed. Referral None record ed. Procedures None record ed. Surgeries None record ed. Imaging None record ed. MedicationOrders None record ed. VaccineOrders None record ed. Patient TargetsNo targets recorded. Patient InstructionsNo instructions recorded. Reason for Referral None Reported. Procedures Surgical History Date Name Laterality Status Provider Name and Address Organization Details Recorded Time CARPAL TUNNEL RELEASE (SURG) completed [place] E[place] 11/23/2023 10:47:37 Imaging Results None recorded. Procedure Notes None recorded. Medical Equipment None Reported. Allergies No known drug allergies Medications Name Authored On Sig Start Date Stop Date Status Note Indication Fill Status Repeat Number Dispense Quantity LastModified by Organization Details LastModified Time bupro pion HCl 150 mg table t,12 hr susta ined- relea se(sm oking deter rent) 4 13:26:18 1 TABL ET BY MOUT H 2 TIME S A DAY, X30 DAYS ,INS TR:N EEDS APPT FOR FURT HER REFI LLS active Not Available Not availab le 0 Not Available Not Available [facility] 11/28/2023 13:26:18 bupro pion HCl SR 150 mg table t,12 hr susta ined- relea se 4 13:26:18 TAKE 1 TABL ET BY MOUT H TWIC E A DAY FOR 30 DAYS active Not Available Not availab le 0 Not Available Not Available [facility] 11/28/2023 13:26:18 terrence calci ferol (héctor min D3) 1,250 mcg (50,0 00 unit) capsu le 4 13:26:18 TAKE 1 CAPS ULE BY MOUT H ONCE A WEEK active Not Available Not availab le 0 Not Available Not Available [facility] 11/28/2023 13:26:18 cyclo benza nilsa 10 mg table t 4 13:26:18 TAKE 1 TABL ET BY MOUT H EVER Y DAY AT BEDT LATOYA NEED ED FOR MUSC LE SPAS MS active Not Available Not availab le 0 Not Available Not Available [facility] 11/28/2023 13:26:18 docus ate sodiu m 100 mg capsu le 4 13:26:18 TAKE 1 CAPS ULE BY MOUT H 2 TIME S A DAY NEED ED FOR CONS TIPA TION active Not Available Not availab le 0 Not Available Not Available [facility] 11/28/2023 13:26:18 hydro xyzin e HCl 10 mg table t 4 13:26:18 TAKE 2 TABL ETS BY MOUT H EVER Y DAY AT BEDT LATOYA NEED ED ITCH ING active Not Available Not availab le 0 Not Available Not Available [facility] 11/28/2023 13:26:18 ibupr ofen 600 mg table t 4 13:26:18 TAKE 1 TABL ET BY MOUT H EVER Y 6 HOUR S NEED ED FOR PAIN active Not Available Not availab le 0 Not Available Not Available [facility] 11/28/2023 13:26:18 ketor olac 10 mg table t 4 13:26:18 TAKE 1 TABL ET BY MOUT H 3 TIME S A DAY FOR 5 DAYS NEED ED FOR PAIN active Not Available Not availab le 0 Not Available Not Available [facility] 11/28/2023 13:26:18 lidoc leland 5 % topic al patch 4 13:26:18 APPL Y 1 PATC H TO MOST PAIN FUL AREA VANCE Y (12 HOUR S ON, 12 HOUR S OFF) NEED ED FOR PAIN active Not Available Not availab le 0 Not Available Not Available [facility] 11/28/2023 13:26:18 oxyco done 5 mg table t 4 13:26:18 TAKE 1 TABL ET EVER Y 6 HOUR S BY ORAL ROUT E NEED ED, FOR PAIN . active Not Available Not availab le 0 Not Available Not Available [facility] 11/28/2023 13:26:18 predn isone 50 mg table t 4 13:26:18 TAKE 1 TABL ET BY MOUT H EVER Y DAY FOR 5 DAYS active Not Available Not availab le 0 Not Available Not Available [facility] 11/28/2023 13:26:18 melox icam 15 mg table t 4 01:25:38 TAKE 1 TABL ET BY MOUT H EVER Y DAY complet ed Osteoarthri tis of knee Not availab le 0 Not Available Not Available [facility] 12/24/2023 08:24:58 Vitals Date Recorded Body height Body mass index (BMI) Body weight Provider Name and Address Organization Details Last Updated DateTime 11/08/2023 157.48 cm 40.1 kg/m2 74835.73 g JOSE RAFAEL DOWNEY [place] - [place] [facility] 11/08/2023 12:58:48 Social History Social History Observation Description Date Observed Sex Unknown 06/20/2024 Legal Sex Female No social history survey screeners recorded No social history SDOH screeners recorded Functional Status None recorded. No Functional Screening assessment recorded No Functional SDOH screeners recorded Mental Status None recorded. No Mental Screening assessment recorded No Mental SDOH screeners recorded Family History Nothing Reported. Medical History No medical history recorded. Gynecological HistoryNo gynecological history recorded. Obstetrics History GPAL:G 0 P 0 0 0 0 Past Encounters Encounter ID Performer Location Encounter Start Date Encounter Closed Date Diagnosis/Indication Diagnosis SNOMED-CT Code Diagnosis ICD10 Code Diagnosis IMO Codes Diagnosis Note [id number] MD Myron Sanders [address] [place] [address] 11/08/2023 12:51:43 11/29/2023 12:02:13 Carpal tunnel syndrome of left wrist [id number] 91337 G56.02 Health Concerns Section Related Observation LastModified by Organization [facility]eta[facility] LastModified Time None Recorded Concern Status LastModified by Organization Details LastModified Time None Recorded SDOH Concern Status LastModified by Organization [facility] LastModified Time None Recorded Advance Directives Directive None Recorded Payers Insurance Date Sequence Insurance Name Policy Number Policy Amezcua Covered Member ID Amezcua Member ID Guarantor Name 12/02/[address] [place] [address] (MEDICAID HMO) [id number] [facility] [id number] [facility] Notes Date Note Type Note Provider Name and Address Organization Details Recorded Time 11/08/2023 text/html ROS as noted in the HPI Patient is a 47-year-old female seen today to discuss treatment plans for her left carpal tunnel syndrome. She is known to me having undergone a right carpal tunnel release in the past. She did well after that surgery and is here today to this patient is scheduled left carpal tunnel release. Marcela Herr MD [address] [facility] [address], [place], [address], [facility] 11/08/2023 13:17:24 Care Team Name Role Member ID Specialty Address Phone None Recorded. OBGyn Episode No OBEpisode recorded.
== END 2025-06-19 13:17 | disposition home or self-care (01) ==
LOC: HO.MAMMO 13:16
PROVIDERS: PCP Internal Medicine; Visit Provider Internal Medicine
DX: N63.11 Unspecified lump in the right breast, upper outer quadrant (principal)
CPT/HCPCS: 76642; 77062; 77066

== ENCOUNTER → 2025-06-19 13:30 | Outpatient (BNV) | payer MEDICAID, SELFPAY | PROVIDERS: PCP Internal Medicine; Visit Provider Internal Medicine | DX: N60.01 Solitary cyst of right breast (principal); Z80.3 Family history of malignant neoplasm of breast | CPT/HCPCS: 76642; 77062; 77066 ==